=== PATIENT | male | born 1980 | race Caucasian/White ===

== ENCOUNTER → 2017-04-16 | Outpatient (CLI) | payer BC ==
--- NOTE | 2017-04-16 17:08 | RADIOLOGY REPORT (SQ) ---
EXAM DESCRIPTION: MRI RT LOWER JOINT WITHOUT COMPLETED DATE/TIME: 04/16/2017 4:22 pm REASON FOR STUDY: PAIN IN R KNEE M25.561 PAIN IN RIGHT KNEE COMPARISON: None. TECHNIQUE: Rightknee images acquired and stored on PACS. Multiplanar images include fat sensitive s equences as T1, water sensitive sequences as FST2 or STIR, cartilage sensitive sequences as FSPD, and gradient echo sequences. LIMITATIONS: None. FINDINGS: JOINT AND BURSAE: Small joint effusion. No popliteal cyst. BONE CORTEX AND MARROW: No alteration of signal to suggest marrow replacement. No worrisome bone lesi ons. No occult fracture. ACL: Midsubstance interstitial tear of the ACL. PCL: Intact. MCL: Intact. No periligamentous edema or fluid. LCL: Intact. No periligamentous edema or fluid. MEDIAL MENISCUS: Flap tear posterior horn the medial meniscus. LATERAL MENISCUS: No tears. No abnormal signal. MEDIAL COMPARTMENT: Cartilage preserved. No bone bruises or reactive marrow edema. No osteophytes. LATERAL COMPARTMENT: Irregular cartilage along the lateral femoral condyle and lateral tibial plateau . No significant osteophytes. PATELLA: No chondromalacia. No subchondral cysts. Medial and lateral retinacula intact. EXTENSOR MECHANISM: Intact. Quadriceps and patella tendons normal. SOFT TISSUES: Adjacent muscles and subcutaneous tissues normal. Normal flow void in popliteal artery and vein. OTHER: No other significant finding. IMPRESSION: Small flap tear posterior horn of the medial meniscus. Irregular cartilaginous loss of the lateral femoral condyle and lateral tibial plateau. Small joint effusion. TECHNICAL DOCUMENTATION: JOB ID: [id number] [employer]- All Rights Reserved
== END ==
LOC: RAD 15:35
PROVIDERS: ATTEND Orthopaedic Surgery
DX: S83.241A Other tear of medial meniscus, current injury, right knee, initial encounter (principal); X58.XXXA Exposure to other specified factors, initial encounter; M25.561 Pain in right knee

== ENCOUNTER 2017-05-20 17:21 | Emergency (ER) | payer BC ==
[2017-05-20 17:59] VITALS: BP 139/86
--- NOTE | 2017-05-20 18:21 | ER Document Report ---
ED ENT - General Stated Complaint: EAR,NECK PAIN Time Seen by Provider: 05/20/17 18:06 Information source: Patient Notes: 37-year-old male who presents today with 5 days of right ear pain. He states it radiates to the upper lateral part of his head and down his right neck. He denies any weakness or numbness. He denies any blurry vision, nausea, vomiting , fevers, or sore throat. Patient states he has had a little bit of drainage from his right ear he believes. Patient denies a history of diabetes. TRAVEL OUTSIDE OF THE [place] IN LAST 30 DAYS: No - HPI Patient complains to provider of: Ear problem Onset: Other - See above Onset/Duration: Gradual Quality of pain: Achy Severity: Mild Pain Level: 1 Location of pain: Ears Associated symptoms: Other - See above Similar symptoms previously: No Recently seen / treated by doctor: No - Related Data Allergies/Adverse Reactions: Penicillins Allergy (Verified 10/05/15 09:15) Past Medical History - General Information source: Patient - Social History Smoking Status: Unknown if Ever Smoked Cigarette use (# per day): No Chew tobacco use (# tins/day): No Smoking Education Provided: No Family History: Reviewed & Not Pertinent GI Medical History: Reports: Hx Gastroesophageal Reflux Disease Psychiatric Medical History: Reports: Hx Bipolar Disorder, Hx Depression - Immunizations Hx Diphtheria, Pertussis, Tetanus Vaccination: No Physical Exam - Vital signs Vitals: Temp Pulse Resp BP Pulse Ox 98.2 F 82 20 139/86 H 98 05/20/17 17:57 05/20/17 17:57 05/20/17 17:57 05/20/17 17:57 05/20/17 17:57 Notes: Reviewed vital signs and nursing note as charted by RN. CONSTITUTIONAL: Alert and oriented and responds appropriately to questions. Well -appearing; well-nourished HEAD: Normocephalic; atraumatic EYES: PERRL; Conjunctivae clear, sclerae non-icteric ENT: On examination of bilateral ears the patient has no mastoid tenderness or swelling. There is no ear pinna extrusion. Patient has some mild tenderness when I move the right pinna. Patient has some excoriations to the external auditory canal. Tympanic membrane is clear with landmarks well maintained; normal nose; no rhinorrhea; moist mucous membranes; pharynx without lesions noted NECK: Supple without meningismus; non-tender; no cervical lymphadenopathy, no masses NEURO: CN II through XII are intact. Patient has bilateral 5 out of 5 upper and lower extremity strength with sensation intact to light touch PSYCH: The patient's mood and manner are appropriate. Grooming and personal hygiene are appropriate. Course - Re-evaluation Re-evalutation: 05/20/17 18:25 Given the above history and physical examination, I do not believe that the patient requires any imaging at this time. I will treat the patient with ciprofloxacin eardrops with strict return precautions. - Vital Signs Vital signs: Temp Pulse Resp BP Pulse Ox 98.2 F 82 20 139/86 H 98 05/20/17 17:57 05/20/17 17:57 05/20/17 17:57 05/20/17 17:57 05/20/17 17:57 Discharge - Discharge Clinical Impression: Right otitis externa Qualifiers: Otitis externa type: unspecified type Chronicity: acute Qualified Code(s): H60.501 - Unspecified acute noninfective otitis externa, right ear Condition: Good Disposition: HOME, SELF-CARE Additional Instructions: Come back immediately for any increased pain, drainage, swelling of the ear or behind the ear, fevers or vomiting, weakness or numbness, or any other acute problems. Prescriptions: Ciprofloxacin/Hydrocortisone [Cipro Hc Otic Suspension] 10 ml OT BID #3 drops.susp
== END 2017-05-20 18:36 | disposition home or self-care (01) ==
LOC: ER 17:21
DX: H60.501 Unspecified acute noninfective otitis externa, right ear (principal); Z88.0 Allergy status to penicillin
CPT/HCPCS: 82962; 99283

== ENCOUNTER 2017-07-27 16:07 | Emergency (ER) | payer BC ==
[2017-07-27] MEDS ORDERED: MAGNESIUM CITRATE 296 ML BOTTLE PO ONE (19:42)
[2017-07-27] MEDS ORDERED: KETOROLAC TROMETHAMINE 60 MG/2 ML SDV IM ONE (19:43)
--- NOTE | 2017-07-27 19:45 | ER Document Report ---
ED Medical Screen (RME) - General Chief Complaint: Constipation Stated Complaint: CONSTIPATION Time Seen by Provider: 07/27/17 19:37 Notes: 37-year-old male, chief complaint of pain in his rectal area when he tried to have a bowel movement. He states that he had discomfort in his abdomen earlier but this resolved. He reports current pain in the rectal area. He does have a history of hemorrhoids, he states that he also had a colonoscopy with polyp removal. Last bowel movement 2 days ago, was normal. Denies nausea or vomiting , fever or chills. TRAVEL OUTSIDE OF THE [place] IN LAST 30 DAYS: No - Related Data Allergies/Adverse Reactions: Penicillins Allergy (Verified 10/05/15 09:15) Past Medical History - Social History Chew tobacco use (# tins/day): No Frequency of alcohol use: None Drug Abuse: None Renal/ Medical History: Denies: Hx Peritoneal Dialysis GI Medical History: Reports: Hx Gastroesophageal Reflux Disease Psychiatric Medical History: Reports: Hx Bipolar Disorder - anxiety, depression , Hx Depression - Immunizations Hx Diphtheria, Pertussis, Tetanus Vaccination: No Physical Exam - Vital signs Vitals: Temp Pulse Resp BP Pulse Ox 98.5 F 83 18 123/82 94 07/27/17 16:11 07/27/17 16:11 07/27/17 16:11 07/27/17 16:11 07/27/17 16:11 - Abdominal Inspection: Normal Tenderness: Nontender Course - Re-evaluation Re-evalutation: Patient's only discomfort is in the rectal area at this time. Soft abdomen. Requesting something for pain, requesting something to help move his bowels. - Vital Signs Vital signs: Temp Pulse Resp BP Pulse Ox 98.5 F 83 18 123/82 94 07/27/17 16:11 07/27/17 16:11 07/27/17 16:11 07/27/17 16:11 07/27/17 16:11
--- NOTE | 2017-07-27 20:24 | RADIOLOGY REPORT (SQ) ---
EXAM DESCRIPTION: ACUTE ABDOMEN SERIES COMPLETED DATE/TIME: 07/27/2017 8:13 pm REASON FOR STUDY: can't move bowels COMPARISON: None. NUMBER OF VIEWS: Three views. TECHNIQUE: Frontal chest, supine abdomen and upright/decubitus abdomen radiographic images acquired. LIMITATIONS: None. FINDINGS: CHEST: Lungs clear of infiltrates. FREE AIR: None. No abnormal gas collections. BOWEL GAS PATTERN: Nonobstructive pattern. Moderate stool. No dilated loops or air fluid levels. CALCIFICATIONS: No suspicious calcifications. HARDWARE: None in the abdomen. SOFT TISSUES: No gross mass or suggestion of organomegaly. BONES: No acute fracture. No worrisome bone lesions. OTHER: No other significant finding. IMPRESSION: NO RADIOGRAPHIC EVIDENCE FOR ACUTE ABDOMINAL DISEASE. TECHNICAL DOCUMENTATION: JOB ID: [id number] [employer]- All Rights Reserved
--- NOTE | 2017-07-27 22:37 | ER Document Report ---
ED GI/ - General Chief Complaint: Constipation Stated Complaint: CONSTIPATION Time Seen by Provider: 07/27/17 19:37 Notes: 37-year-old male, chief complaint of pain in his rectal area when he tried to have a bowel movement. He states that he had discomfort in his abdomen earlier but this resolved. He reports current pain in the rectal area. He does have a history of hemorrhoids, he states that he also had a colonoscopy with polyp removal. Last bowel movement 2 days ago, was normal. Denies nausea or vomiting , fever or chills. TRAVEL OUTSIDE OF THE [place] IN LAST 30 DAYS: No - Related Data Allergies/Adverse Reactions: Penicillins Allergy (Verified 10/05/15 09:15) Past Medical History - General Information source: Patient - Social History Smoking Status: Never Smoker Chew tobacco use (# tins/day): No Frequency of alcohol use: None Drug Abuse: None Lives with: Alone Family History: Reviewed & Not Pertinent Patient has suicidal ideation: No Patient has homicidal ideation: No Renal/ Medical History: Denies: Hx Peritoneal Dialysis GI Medical History: Reports: Hx Gastroesophageal Reflux Disease Psychiatric Medical History: Reports: Hx Bipolar Disorder - anxiety, depression , Hx Depression - Immunizations Hx Diphtheria, Pertussis, Tetanus Vaccination: No Review of Systems - Review of Systems Constitutional: No symptoms reported EENT: No symptoms reported Cardiovascular: No symptoms reported Respiratory: No symptoms reported Gastrointestinal: See HPI Genitourinary: No symptoms reported Male Genitourinary: No symptoms reported Musculoskeletal: No symptoms reported Skin: No symptoms reported Hematologic/Lymphatic: No symptoms reported Neurological/Psychological: No symptoms reported Physical Exam - Vital signs Vitals: Temp Pulse Resp BP Pulse Ox 98.5 F 83 18 123/82 94 07/27/17 16:11 07/27/17 16:11 07/27/17 16:11 07/27/17 16:11 07/27/17 16:11 Interpretation: Normal - General General appearance: Appears well, Alert In distress: None - HEENT Head: Normocephalic, Atraumatic Eyes: Normal Pupils: PERRL - Respiratory Respiratory status: No respiratory distress Chest status: Nontender Breath sounds: Normal Chest palpation: Normal - Cardiovascular Rhythm: Regular. No: Tachycardia Heart sounds: Normal auscultation, S1 appreciated, S2 appreciated Murmur: No - Abdominal Inspection: Normal Distension: No distension Bowel sounds: Normal Tenderness: Nontender. No: Tender, Guarding - Back Back: Normal, Nontender. No: Tender - Extremities General upper extremity: Normal inspection, Nontender, Normal color, Normal ROM , Normal temperature General lower extremity: Normal inspection, Nontender, Normal color, Normal ROM , Normal temperature, Normal weight bearing. No: Ellen's sign - Neurological Neuro grossly intact: Yes Cognition: Normal Orientation: AAOx4 [place] Coma Scale Eye Opening: Spontaneous [place] Coma Scale Verbal: Oriented [place] Coma Scale Motor: Obeys Commands Irma Coma Scale Total: 15 Speech: Normal Motor strength normal: LUE, RUE, LLE, RLE Sensory: Normal - Psychological Associated symptoms: Normal affect, Normal mood - Skin Skin Temperature: Warm Skin Moisture: Dry Skin Color: Normal Course - Re-evaluation Re-evalutation: Unfortunately I am unable to perform patient's rectal examination because of lack of privacy and available rooms with high capacity in the emergency department. He is well-appearing, emanates without difficulty, has a soft abdomen, unremarkable vital signs. Acute abdominal series showing retained stool but no free air, obstruction, or other abnormality. Patient denying any current abdominal pain, just rectal discomfort. No fever or chills, he has a history of hemorrhoids. He drank magnesium citrate without success. I discussed with patient again. He states he is ready to leave. I have low suspicion of rectal abscess, acute abdomen, or other emergent process based on patient's appearance, vital signs, presentation. Patient was discharged with Colace, topical ointment for hemorrhoids, follow-up instructions, and return precautions. Patient states understanding and agreement. - Vital Signs Vital signs: Temp Pulse Resp BP Pulse Ox 97.7 F 70 18 124/75 99 07/27/17 22:38 07/27/17 22:38 07/27/17 22:38 07/27/17 22:38 07/27/17 22:38 Discharge - Discharge Clinical Impression: Rectal pain Abdominal pain Qualifiers: Abdominal location: generalized Qualified Code(s): R10.84 - Generalized abdominal pain Condition: Stable Disposition: HOME, SELF-CARE Additional Instructions: Abdominal x-rays show retained stool but states constipation) but no obstructive or concerning abnormalities. Drink plenty of fluids, recommendation is to take the prescribed Colace stool softener for the next 2-3 days, apply cream to hemorrhoid area, avoid any straining on the toilet, follow- up with primary care for additional management. Return for any concerning symptoms including severe pain in the abdomen, vomiting, fever, black or bloody bowel movements, or any other concerning or worsening symptoms. Prescriptions: Docusate Sodium [Colace 100 mg Capsule] 100 mg PO ASDIR PRN #30 capsule PRN Reason: Hydrocortisone/Pramoxine [Analpram Hc 1% Cream] 30 gm RC TID PRN #1 cream.appl PRN Reason: Forms: Return to Work
[2017-07-27 22:39] VITALS: BP 124/75
== END 2017-07-27 22:41 | disposition home or self-care (01) ==
LOC: ER 16:07
DX: K59.00 Constipation, unspecified (principal); R10.84 Generalized abdominal pain; K62.89 Other specified diseases of anus and rectum; Z88.0 Allergy status to penicillin; Z87.19 Personal history of other diseases of the digestive system
CPT/HCPCS: 99283; 96372; 74022; J3490; J1885

== ENCOUNTER 2017-07-28 12:15 | Emergency (ER) | payer BC ==
--- NOTE | 2017-07-28 14:23 | ER Document Report ---
ED Medical Screen (RME) - General Chief Complaint: Abdominal Pain Stated Complaint: BLOOD IN STOOL Time Seen by Provider: 07/28/17 14:20 Mode of Arrival: Ambulatory Information source: Patient Notes: 37 yo non smoker male returns to er because of dark red blood and anal pain when he had a small bm-ripped and tore anus today. This morning at 03:30 woke up choking and vomiting into trash can. Still having abd. pain and pain in rectum. Seen in [facility] ER yesterday with trouble rectal pain, not able to have bm , abd. pain. Xray should constipation way up high. Drank Mg Citrate that he drank at 22:30, no enema. Hx internal and external hemorrhoids. 2 polyps removed. Intermittent anal pain/tearing of anal tissue this past year. No anal sex. Abd. pain started while trying to have BM at 3 pm 1-23. TRAVEL OUTSIDE OF THE [place] IN LAST 30 DAYS: No - Related Data Allergies/Adverse Reactions: Penicillins Allergy (Verified 07/28/17 12:16) Past Medical History Renal/ Medical History: Denies: Hx Peritoneal Dialysis GI Medical History: Reports: Hx Gastroesophageal Reflux Disease Psychiatric Medical History: Reports: Hx Bipolar Disorder - anxiety, depression , Hx Depression - Immunizations Hx Diphtheria, Pertussis, Tetanus Vaccination: No Physical Exam - Vital signs Vitals: Temp Pulse Resp BP Pulse Ox 97.9 F 76 14 104/62 98 07/28/17 12:46 07/28/17 12:46 07/28/17 12:46 07/28/17 12:46 07/28/17 12:46 Course - Vital Signs Vital signs: Temp Pulse Resp BP Pulse Ox 97.9 F 76 14 104/62 98 07/28/17 12:46 07/28/17 12:46 07/28/17 12:46 07/28/17 12:46 07/28/17 12:46
[2017-07-28 15:02] LABS: APPEARANCE,URINE CLEAR; BILIRUBIN,URINE NEGATIVE (NEGATIVE); COLOR,URINE YELLOW; GLUCOSE, URINE NEGATIVE (NEGATIVE); KETONES,URINE NEGATIVE (NEGATIVE); LEUKOCYTE ESTERASE,URINE NEGATIVE (NEGATIVE); NITRITE,URINE NEGATIVE (NEGATIVE); PROTEIN,URINE NEGATIVE (NEGATIVE); URINE SPECIFIC GRAVITY 1.008; UROBILINOGEN,URINE NEGATIVE mg/dL (<2.0)
[2017-07-28] MEDS ORDERED: MORPHINE SULFATE 10 MG/ML INJ IV ONE (15:35)
[2017-07-28 15:36] LABS: ABSOLUTE BASOPHILS # (AUTO) 0.1 10^3/uL (0.0-0.2); ABSOLUTE EOSINOPHILS # (AUTO) 0.3 10^3/uL (0.0-0.6); ABSOLUTE LYMPHOCYTES (AUTO) 1.7 10^3/uL (0.5-4.7); ABSOLUTE MONOCYTES (AUTO) 0.7 10^3/uL (0.1-1.4); ABSOLUTE NEUT (AUTO) 6.7 10^3/uL (1.7-8.2); BASOPHILS % (AUTO) 0.6 % (0-2); EOSINOPHILS % (AUTO) 3.1 % (0-6); HEMATOCRIT 44.4 % (37.9-51.0); HEMOGLOBIN 15.4 g/dL (13.5-17.0); LYMPHOCYTES % (AUTO) 17.8 % (13-45); MEAN CORPUSCULAR HEMOGLOBIN 31.1 pg (27.0-33.4); MEAN CORPUSCULAR HGB CONC 34.5 g/dL (32.0-36.0); MEAN CORPUSCULAR VOLUME 90 fl (80-97); MONOCYTES % (AUTO) 7.5 % (3-13); PLATELET COUNT 213 10^3/uL (150-450); RED BLOOD COUNT 4.93 10^6/uL (4.35-5.55); RED CELL DISTRIBUTION WIDTH 13.6 % (11.5-14.0); TOTAL CELLS COUNTED % (AUTO) 100 %; WHITE BLOOD COUNT 9.4 10^3/uL (4.0-10.5)
--- NOTE | 2017-07-28 15:44 | RADIOLOGY REPORT (SQ) ---
EXAM DESCRIPTION: CT ABD/PELVIS WITH IV ONLY COMPLETED DATE/TIME: 07/28/2017 3:31 pm REASON FOR STUDY: RLQ and LLQ abd tendernes, blood with stool this a COMPARISON: ABDOMINAL FILMS 07/27/2017 TECHNIQUE: CT scan of the abdomen and pelvis performed using helical scanning technique with dynamic intravenous contrast injection. No oral contrast. Images reviewed with lung, soft tissue, and bone windows. Reconstructed coronal and sagittal MPR images reviewed. Delayed images for evaluation of the urinary system also acquired. All images stored on PACS. All CT scanners at this facility use dose modulation, iterative reconstruction, and/or weight based d osing when appropriate to reduce radiation dose to as low as reasonably achievable (ALARA). [facility]: Dose Right [facility]: CareDose [facility]: Dose Right [facility]: Teradose 4D [facility]: Supernova CONTRAST TYPE AND DOSE: contrast/concentration: Isovue 370.00 mg/ml; Total Contrast Delivered: 100.0 ml; Total Saline Delivered: 45.0 ml RENAL FUNCTION: None required. The patient is less than 50 years old. RADIATION DOSE: CT Rad equipment meets quality standard of care and radiation dose reduction techniq ues were employed. CTDIvol: 10.6 - 14.9 mGy. DLP: 1434 mGy-cm.. LIMITATIONS: None. FINDINGS: LOWER CHEST: Bibasilar atelectasis is present in the posterior costophrenic sulci. LIVER: Normal size. No masses. No dilated ducts. SPLEEN: Normal size. No focal lesions. PANCREAS: No masses. No significant calcifications. No adjacent inflammation or peripancreatic fluid collections. Pancreatic duct not dilated. GALLBLADDER: No identified stones by CT criteria. No inflammatory changes to suggest cholecystitis. ADRENAL GLANDS: No significant masses or asymmetry. RIGHT KIDNEY AND URETER: No solid masses. No significant calcifications. No hydronephrosis or hyd roureter. LEFT KIDNEY AND URETER: No solid masses. No significant calcifications. No hydronephrosis or hydr oureter. AORTA AND VESSELS: No aneurysm. No dissection. Renal arteries, SMA, celiac without stenosis. RETROPERITONEUM: No retroperitoneal adenopathy, hemorrhage or masses. BOWEL AND PERITONEAL CAVITY: No masses or inflammatory changes. No free fluid or peritoneal masses. APPENDIX: Normal. PELVIS: No mass. No free fluid. Normal bladder. ABDOMINAL WALL: No masses. No hernias. BONES: No significant or acute findings. OTHER: No other significant finding. IMPRESSION: NO SIGNIFICANT OR ACUTE FINDING IN THE ABDOMEN OR PELVIS ON CT SCAN WITH IV CONTRAST. TECHNICAL DOCUMENTATION: JOB ID: [id number] Quality ID # [id number]: Final reports with documentation of one or more dose reduction techniques (e.g., Au tomated exposure control, adjustment of the mA and/or kV according to patient size, use of iterative reconstruction technique) 2010 [employer]- All Rights Reserved
[2017-07-28 16:51] LABS: ALANINE AMINOTRANSFERASE 71 U/L (21-72); ALKALINE PHOSPHATASE 66 U/L (38-126); ANION GAP 8 (5-19); ASPARTATE AMINO TRANSFERASE 39 U/L (17-59); BILIRUBIN,DIRECT 0.2 mg/dL (0.0-0.4); BILIRUBIN,TOTAL 0.5 mg/dL (0.2-1.3); BLOOD UREA NITROGEN 13 mg/dL (7-20); CALCIUM 9.6 mg/dL (8.4-10.2); CARBON DIOXIDE 28 mmol/L (22-30); CHLORIDE 100 mmol/L (98-107); GLUCOSE 91 mg/dL (75-110); POTASSIUM 4.5 mmol/L (3.6-5.0); SODIUM 135.8 mmol/L (137-145); TOTAL PROTEIN 6.5 g/dL (6.3-8.2)
[2017-07-28 17:14] VITALS: BP 114/66
--- NOTE | 2017-07-28 17:15 | ER Document Report ---
ED GI/ - General Chief Complaint: Abdominal Pain Stated Complaint: BLOOD IN STOOL Time Seen by Provider: 07/28/17 14:20 Mode of Arrival: Ambulatory Notes: 37 yo non smoker male returns to er because of dark red blood and anal pain when he had a small bm-ripped and tore anus today. This morning at 03:30 woke up choking and vomiting into trash can. Still having abd. pain and pain in rectum. Seen in [facility] ER yesterday with trouble rectal pain, not able to have bm , abd. pain. Xray should constipation way up high. Drank Mg Citrate that he drank at 22:30, no enema. Hx internal and external hemorrhoids. 2 polyps removed. Intermittent anal pain/tearing of anal tissue this past year. No anal sex. Abd. pain started while trying to have BM at 3 pm 1-23. TRAVEL OUTSIDE OF THE [place] IN LAST 30 DAYS: No - Related Data Allergies/Adverse Reactions: Penicillins Allergy (Verified 07/28/17 12:16) Past Medical History - General Information source: Patient - Social History Smoking Status: Never Smoker Chew tobacco use (# tins/day): No Frequency of alcohol use: Rare Drug Abuse: None Family History: Reviewed & Not Pertinent Patient has suicidal ideation: No Patient has homicidal ideation: No Renal/ Medical History: Denies: Hx Peritoneal Dialysis GI Medical History: Reports: Hx Gastroesophageal Reflux Disease Psychiatric Medical History: Reports: Hx Bipolar Disorder - anxiety, depression , Hx Depression - Immunizations Hx Diphtheria, Pertussis, Tetanus Vaccination: No Review of Systems - Review of Systems Constitutional: No symptoms reported EENT: No symptoms reported Cardiovascular: No symptoms reported Respiratory: No symptoms reported Gastrointestinal: See HPI Genitourinary: No symptoms reported Male Genitourinary: No symptoms reported Musculoskeletal: No symptoms reported Skin: No symptoms reported Hematologic/Lymphatic: No symptoms reported Neurological/Psychological: No symptoms reported Physical Exam - Vital signs Vitals: Temp Pulse Resp BP Pulse Ox 97.9 F 76 14 104/62 98 07/28/17 12:46 07/28/17 12:46 07/28/17 12:46 07/28/17 12:46 07/28/17 12:46 Interpretation: Normal - General General appearance: Appears well, Alert In distress: None - HEENT Head: Normocephalic, Atraumatic Eyes: Normal Conjunctiva: Normal Pupils: PERRL Pharynx: Normal Neck: Supple. No: Lymphadenopathy - Respiratory Respiratory status: No respiratory distress Chest status: Nontender Breath sounds: Normal Chest palpation: Normal - Cardiovascular Rhythm: Regular Heart sounds: Normal auscultation Murmur: No - Abdominal Inspection: Normal Distension: No distension Bowel sounds: Normal Tenderness: Tender - Right and left lower quadrant no rebound. No: McBurney's point, Guarding, Rebound Organomegaly: No organomegaly - Back Back: Normal, Nontender. No: CVA tenderness - Extremities General upper extremity: Normal inspection, Nontender, Normal color, Normal ROM , Normal temperature General lower extremity: Normal inspection, Nontender, Normal color, Normal ROM , Normal temperature, Normal weight bearing. No: Ellen's sign - Neurological Neuro grossly intact: Yes Cognition: Normal Orientation: AAOx4 [place] Coma Scale Eye Opening: Spontaneous [place] Coma Scale Verbal: Oriented [place] Coma Scale Motor: Obeys Commands [place] Coma Scale Total: 15 Speech: Normal Motor strength normal: LUE, RUE, LLE, RLE Sensory: Normal - Psychological Associated symptoms: Normal affect, Normal mood - Skin Skin Temperature: Warm Skin Moisture: Dry Skin Color: Normal Skin irregularity: negative: Rash Course - Re-evaluation Re-evalutation: 07/28/17 17:20 Creatinine is elevated, GFR is reduced. Will send to hospitality house supervisor= he has 1 in [place] that he is seen in past. Will also refer to service manager for colonoscopy. - Vital Signs Vital signs: Temp Pulse Resp BP Pulse Ox 97.7 F 72 16 114/66 97 07/28/17 17:12 07/28/17 17:12 07/28/17 17:12 07/28/17 17:12 07/28/17 17:12 - Laboratory Result Diagrams: 07/28/17 15:13 07/28/17 16:00 Laboratory results interpreted by me: 07/28/17 16:00 Sodium 135.8 L Creatinine 1.71 H Est GFR ( Amer) 55 L Est GFR (Non-Af Amer) 46 L Discharge - Discharge Clinical Impression: Rectal bleed, Renal insufficiency Abdominal pain Qualifiers: Abdominal location: lower abdomen, unspecified Qualified Code(s): R10.30 - Lower abdominal pain, unspecified Condition: Good Disposition: HOME, SELF-CARE Instructions: Abdominal Pain ([facility]), Rectal Bleeding, Unclear Cause ([facility]) Additional Instructions: see the service manager dr. Anthony SMITH see family practice doctor to repeat the BUN and Creatinine in a week return to ER for any increased pain, bleeding or fever over the counter miralax daily 1 capful in 8 oz Forms: Return to Work Referrals: JUDI JOSHUA MD [ACTIVE STAFF] - Follow up in 3-5 days
== END 2017-07-28 17:14 | disposition home or self-care (01) ==
LOC: ER 12:15
DX: K62.5 Hemorrhage of anus and rectum (principal); N28.9 Disorder of kidney and ureter, unspecified; R10.30 Lower abdominal pain, unspecified; R10.813 Right lower quadrant abdominal tenderness; R10.814 Left lower quadrant abdominal tenderness; R11.10 Vomiting, unspecified; Z88.0 Allergy status to penicillin; Z87.19 Personal history of other diseases of the digestive system
CPT/HCPCS: 99284; 96374; 36415; 85025; 80053; 81001; 74177; J2270

== ENCOUNTER 2017-08-06 07:45 | Day surgery (SDC) | payer BC ==
[2017-08-06] MEDS ORDERED: PROPOFOL INJ 200 MG/20 ML VIAL IV ONE (08:12)
[2017-08-06] MEDS ORDERED: MIDAZOLAM 2 MG/2 ML INJ ONE (08:12)
[2017-08-06] MEDS ORDERED: ONDANSETRON HCL INJ/PF 4 MG/2 ML SDV ONE (08:12)
[2017-08-06] MEDS ORDERED: FAMOTIDINE INJ/PF 20 MG/2 ML SDV IV ONE (09:48)
[2017-08-06] MEDS ORDERED: PROMETHAZINE HCL INJ 25 MG/1 ML VIAL IV PRN (10:07)
[2017-08-06] MEDS ORDERED: DIPHENHYDRAMINE HCL 50 MG/ML VIAL IV PRN (10:07)
[2017-08-06] MEDS ORDERED: FENTANYL CITRATE INJ/PF 100 MCG/2 ML AMPUL IV PRN ×3 (10:07)
--- NOTE | 2017-08-06 10:56 | Operative Report ---
Operative Report DATE OF SURGERY: 08/06/17 Operative Report: The risks, benefits and alternatives of the procedure including risks of bleeding, perforation requiring surgery are explained to the patient in detail and informed consent was obtained. The patient is brought back to the endoscopy suite and placed in the left, lateral decubital position. Timeout was called. Propofol medications are provided. A rectal examination is done which did not reveal any masses, tears or fissures. An Olympus videoscope was inserted into the patient's rectum. The scope was then carefully advanced all the way to the cecum. Prep is reasonably good. Scope was then sequentially pulled back via the rest segments of the colon including the ascending colon, hepatic flexure, transverse colon, splenic flexure, descending colon and finding to the rectosigmoid portions of the colon. Retroflexion maneuver is performed. The risks benefits and alternatives of the procedure explained to the patient in detail and informed consent is obtained.A GIF Olympus video scope was inserted into the patient's mouth and hypopharynx, the esophagus is identified intubated and insufflated, the scope was then advanced through the esophagus stomach and duodenum, retroflexion maneuver is done, the esophagus stomach and first and second portions of the duodenum examined PREOPERATIVE DIAGNOSIS: Personal history of polyps, change in bowel habits. Gastroesophageal reflux disease assess for Stephenson's esophagus. POSTOPERATIVE DIAGNOSIS: Gastritis/gastric erosions status post biopsy. Esophagitis status post biopsy rule out Stephenson's esophagus. Colon polyp in the rectosigmoid region status post snare polypectomy and retrieved. Internal hemorrhoids OPERATION: Colonoscopy with snare polypectomy. EGD with biopsy SURGEON: JUDI JOSHUA ANESTHESIA: LMAC TISSUE REMOVED OR ALTERED: As noted above. COMPLICATIONS: None. ESTIMATED BLOOD LOSS: None. INTRAOPERATIVE FINDINGS: As noted above. PROCEDURE: Patient tolerated procedure well. No immediate postprocedure complications are noted. Patient discharged in good condition. Discharge date August 06, 2017. Discharge diet: Regular. Discharge activity: Regular. 2-3 week follow-up to discuss findings. Patient is instructed to call the office or proceed to the emergency room should there be any further problems or questions. We will wait on pathology. Surveillance colonoscopy in 3-5 years.
[2017-08-06 13:12] VITALS: BP 101/53
== END 2017-08-06 12:25 | disposition home or self-care (01) ==
LOC: OROUT 07:45
PROVIDERS: ATTEND Internal Medicine Gastroenterology
PROC: 0DBP8ZX Excision of Rectum, Via Natural or Artificial Opening Endoscopic, Diagnostic (ICD-10-PCS; 2017-08-06)
PROC: 0DBN8ZX Excision of Sigmoid Colon, Via Natural or Artificial Opening Endoscopic, Diagnostic (ICD-10-PCS; 2017-08-06)
PROC: 0DB58ZX Excision of Esophagus, Via Natural or Artificial Opening Endoscopic, Diagnostic (ICD-10-PCS; principal; 2017-08-06 10:00)
PROC: 0DB68ZX Excision of Stomach, Via Natural or Artificial Opening Endoscopic, Diagnostic (ICD-10-PCS; 2017-08-06 10:00)
DX: K21.0 Gastro-esophageal reflux disease with esophagitis (principal); K29.70 Gastritis, unspecified, without bleeding; K64.8 Other hemorrhoids; D12.7 Benign neoplasm of rectosigmoid junction; K92.1 Melena; Z88.0 Allergy status to penicillin; Z79.899 Other long term (current) drug therapy
CPT/HCPCS: 43239; 45385; 88342 ×2; 88305 ×2; J2250; J2405; J2704; S0028; 813

== ENCOUNTER 2017-08-25 17:40 | Emergency (ER) | payer BC ==
--- NOTE | 2017-08-25 19:57 | ER Document Report ---
HPI - HPI Pain Level: 3 Context: 37 yo male with chronic knee pain presents to ED c/o increasing pain and swelling to right knee. pt has known ACL and MCL injury which he has not repaired because he can not get the time off from work for surgery. pt works at [employer] with prolonged standing. no recent trauma. Associated Symptoms: None Exacerbated by: Movement, Walking. denies: Standing Similar symptoms previously: Yes Recently seen / treated by doctor: No - ROS Systems Reviewed and Negative: Yes All other systems reviewed and negative - CONSTITUTIONAL Constitutional: DENIES: Fever, Chills - EENT EENT: DENIES: Sore Throat, Ear Pain, Eye problems - REPRODUCTIVE Reproductive: DENIES: : - MUSCULOSKELETAL Musculoskeletal: REPORTS: Extremity pain - right knee pain Past Medical History - General Information source: Patient - Social History Smoking Status: Never Smoker Chew tobacco use (# tins/day): No Frequency of alcohol use: Occasional Drug Abuse: [place] Lives with: Family Family History: Reviewed & Not Pertinent Patient has suicidal ideation: No Patient has homicidal ideation: No - Past Medical History Cardiac Medical History: Denies: Hx Coronary Artery Disease, Hx Heart Attack, Hx Hypertension Pulmonary Medical History: Denies: Hx Asthma, Hx Bronchitis, Hx COPD, Hx Pneumonia Neurological Medical History: Denies: Hx Cerebrovascular Accident, Hx Seizures Renal/ Medical History: Denies: Hx Peritoneal Dialysis GI Medical History: Reports: Hx Gastroesophageal Reflux Disease Musculoskeltal Medical History: Denies Hx Arthritis Psychiatric Medical History: Reports: Hx Bipolar Disorder - anxiety, depression , Hx Depression - Immunizations Hx Diphtheria, Pertussis, Tetanus Vaccination: Yes Vertical Provider Document - CONSTITUTIONAL Agree With Documented VS: Yes Exam Limitations: No Limitations - INFECTION CONTROL TRAVEL OUTSIDE OF THE [place] IN LAST 30 DAYS: No - HEENT HEENT: Atraumatic, PERRLA - NECK Neck: Normal Inspection, Supple - RESPIRATORY Respiratory: Breath Sounds Normal, No Respiratory Distress O2 Sat by Pulse Oximetry: 97 - MUSCULOSKELETAL/EXTREMETIES Musculoskeletal/Extremeties: Tender - right knee with tenderness to lateral and medial compartments. no effusion. negative drawer. no popliteal pain. + anterior mid patellar pain. distal SMC intact Course - Re-evaluation Re-evalutation: 08/25/17 20:04 [place] Controlled Substance Database reviewed. no narcotic meds prescribed for this patient. no circulatory compromise. this is chronic problem. no effusion to drawn. I recommend pt see orthopedist for further evaluation and treatment. pt is stable for discharge - Vital Signs Vital signs: Temp Pulse Resp BP Pulse Ox 98.1 F 80 16 119/74 97 08/25/17 18:07 08/25/17 18:07 08/25/17 18:07 08/25/17 18:07 08/25/17 18:07 Discharge - Discharge Clinical Impression: Right knee pain Qualifiers: Chronicity: chronic Qualified Code(s): M25.561 - Pain in right knee; G89.29 - Other chronic pain; G89.29 - Other chronic pain Condition: Stable Disposition: HOME, SELF-CARE Instructions: Ice & Elevation ([facility]), Oral Narcotic Medication ([facility]) Additional Instructions: Recommend further evaluation and treatment by orthopedist [facility] [address] [place] [address], [id number] wear splint for comfort and support norco for pain Prescriptions: Hydrocodone/Acetaminophen [[place] 5-325 Tablet] 1 tab PO Q4H PRN #15 tab PRN Reason:
[2017-08-25 20:23] VITALS: BP 115/71
== END 2017-08-25 20:21 | disposition home or self-care (01) ==
LOC: ER 17:40
DX: G89.29 Other chronic pain (principal); M25.561 Pain in right knee; S89.91XA Unspecified injury of right lower leg, initial encounter; X58.XXXA Exposure to other specified factors, initial encounter
CPT/HCPCS: 99283

== ENCOUNTER 2018-02-19 14:58 | Emergency (ER) | payer BC ==
[2018-02-19 15:04] VITALS: BP 135/92
[2018-02-19] MEDS ORDERED: DIAZEPAM 5 MG TABLET PO ONE (15:22)
--- NOTE | 2018-02-19 15:28 | ER Document Report ---
ED Medical Screen (RME) - General Chief Complaint: Psych Problem Stated Complaint: PSYCH PROBLEMS Time Seen by Provider: 02/19/18 15:22 Mode of Arrival: Ambulatory Information source: Patient Notes: This is a 37-year-old man with psychiatric history that has been off of his medicines for a few days and presents wanting to get a temporary prescription. Patient states that he had a lapse of insulin insurance but that he has been able to get the coverage reinstated. He states he was not able to get into his psychiatrist office (and that it had closed). He denies any suicidal or homicidal ideations. His medicines include Zoloft, amitriptyline, clonidine and diazepam. TRAVEL OUTSIDE OF THE [place] IN LAST 30 DAYS: No - HPI Onset: Just prior to arrival Onset/Duration: Gradual Quality of pain: No pain Severity: None Pain Level: Denies Associated Symptoms: denies: Chest pain, Fever, Shortness of breath Exacerbated by: Denies Relieved by: Denies Similar symptoms previously: Yes Recently seen / treated by doctor: No - Related Data Smoking: Non-smoker Frequency of alcohol use: None Drug Abuse: None Allergies/Adverse Reactions: Penicillins Allergy (Verified 02/19/18 14:59) Past Medical History - General Information source: Patient - Social History Cigarette use (# per day): No Chew tobacco use (# tins/day): No Frequency of alcohol use: Occasional Drug Abuse: None Lives with: Alone Family history: None - Past Medical History Cardiac Medical History: Denies: Hx Coronary Artery Disease, Hx Heart Attack, Hx Hypertension Pulmonary Medical History: Denies: Hx Asthma, Hx Bronchitis, Hx COPD, Hx Pneumonia Neurological Medical History: Denies: Hx Cerebrovascular Accident, Hx Seizures Renal/ Medical History: Denies: Hx Peritoneal Dialysis GI Medical History: Reports: Hx Gastroesophageal Reflux Disease Musculoskeltal Medical History: Denies Hx Arthritis Psychiatric Medical History: Reports: Hx Bipolar Disorder - anxiety, depression , Hx Depression - Immunizations Hx Diphtheria, Pertussis, Tetanus Vaccination: Yes History of Influenza Vaccine for 04/2017 - 09/2017 Season: No Review of Systems - Review of Systems Constitutional: denies: Chills, Fever EENT: No symptoms reported Cardiovascular: No symptoms reported Respiratory: No symptoms reported Gastrointestinal: No symptoms reported Genitourinary: No symptoms reported Male Genitourinary: No symptoms reported Musculoskeletal: No symptoms reported Skin: No symptoms reported Hematologic/Lymphatic: No symptoms reported Neurological/Psychological: See HPI Physical Exam - Vital signs Vitals: Temp Pulse Resp BP Pulse Ox 98.5 F 93 12 135/92 H 96 02/19/18 15:02 02/19/18 15:02 02/19/18 15:02 02/19/18 15:02 02/19/18 15:02 Notes: Physical exam: GENERAL: 37-year-old man, alert 3, no acute distress. HEAD: Atraumatic, normocephalic. EYES: Pupils equal round and reactive to light, extraocular movements intact, sclera anicteric, conjunctiva are normal. ENT: TMs normal, nares patent, oropharynx clear without exudates. Moist mucous membranes. NECK: Normal range of motion, supple without obvious mass or JVD. LUNGS: Breath sounds clear to auscultation bilaterally and equal. No wheezes rales or rhonchi. HEART: Regular rate and rhythm without murmurs, rubs or gallops. ABDOMEN: Soft, normoactive bowel sounds. No tenderness to palpation. No guarding, no rebound. No masses appreciated. EXTREMITIES: Normal range of motion, no pitting or edema. No clubbing or cyanosis. NEUROLOGICAL: Cranial nerves II through XII grossly intact. Normal speech, moving all extremities. PSYCH: Patient exhibits no hallucinations or delusions. He denies any suicidal ideation. SKIN: Warm, Dry, normal turgor, no rashes or lesions noted. Course - Re-evaluation Re-evalutation: 02/19/18 15:30 I have had a long discussion with the patient about the importance of following up in the psychiatry clinic. I am a little concerned about the fact that he has been on diazepam chronically and to abruptly stop could raise risks of seizures. Therefore, I have agreed to give him a few tablets to cover him till Wednesday morning. I had gotten a referral list of mental health clinics from the psychology team and they have informed me that [facility] will see walk-in at 8 AM Wednesday morning. The patient has [facility] and they will accept that insurance. I have discussed this plan with the patient and he is agreeable. - Vital Signs Vital signs: Temp Pulse Resp BP Pulse Ox 98.5 F 93 12 135/92 H 96 02/19/18 15:02 02/19/18 15:02 02/19/18 15:02 02/19/18 15:02 02/19/18 15:02 Doctor's Discharge - Discharge Clinical Impression: Medication refill Condition: Stable Disposition: HOME, SELF-CARE Additional Instructions: As we discussed, [facility] has walk-in clinics 8 AM Wednesday. I would like you to go there. I am giving you a referral list with other mental health outpatient clinics. Return to the ER for any suicidal ideations. Prescriptions: Amitriptyline HCl 100 mg PO QHS #14 tablet Clonidine HCl 0.3 mg PO QHS #14 tablet Diazepam [Valium 5 mg Tablet] 5 mg PO QIDP PRN #10 tablet PRN Reason: Sertraline HCl [Zoloft 50 mg Tablet] 50 mg PO DAILY #30 tablet
== END 2018-02-19 15:30 | disposition home or self-care (01) ==
LOC: ER 14:58
DX: Z76.0 Encounter for issue of repeat prescription (principal); F31.9 Bipolar disorder, unspecified; T43.226A Underdosing of selective serotonin reuptake inhibitors, initial encounter; T43.016A Underdosing of tricyclic antidepressants, initial encounter; F41.9 Anxiety disorder, unspecified; T42.4X6A Underdosing of benzodiazepines, initial encounter; T46.5X6A Underdosing of other antihypertensive drugs, initial encounter; Z91.120 Patient's intentional underdosing of medication regimen due to financial hardship; Z91.14 Patient's other noncompliance with medication regimen; Z88.0 Allergy status to penicillin
CPT/HCPCS: 99283

== ENCOUNTER 2018-08-21 06:39 | Emergency (ER) | payer SELFPAY ==
[2018-08-21 06:56] VITALS: BP 150/99
--- NOTE | 2018-08-21 07:47 | ER Document Report ---
HPI - HPI Time Seen by Provider: 08/21/18 07:13 Pain Level: 0 Notes: Patient is a 38-year-old male presenting to the emergency department with request for medication refill. Patient reports he ran out of his medications approximately 3-4 days ago. Patient currently denies any other symptoms. Denies any suicidal or homicidal ideations. - REPRODUCTIVE Reproductive: DENIES: : Past Medical History - General Information source: Patient - Social History Smoking Status: Never Smoker Frequency of alcohol use: None Drug Abuse: None Family History: Reviewed & Not Pertinent - Past Medical History Cardiac Medical History: Denies: Hx Coronary Artery Disease, Hx Heart Attack, Hx Hypertension Pulmonary Medical History: Denies: Hx Asthma, Hx Bronchitis, Hx COPD, Hx Pneumonia Neurological Medical History: Denies: Hx Cerebrovascular Accident, Hx Seizures Renal/ Medical History: Denies: Hx Peritoneal Dialysis GI Medical History: Reports: Hx Gastroesophageal Reflux Disease Musculoskeletal Medical History: Denies Hx Arthritis Psychiatric Medical History: Reports: Hx Bipolar Disorder - anxiety, depression, Hx Depression - Immunizations Hx Diphtheria, Pertussis, Tetanus Vaccination: Yes Vertical Provider Document - CONSTITUTIONAL Notes: PHYSICAL EXAMINATION: GENERAL: Well-appearing, well-nourished and in no acute distress. HEAD: Atraumatic, normocephalic. EYES: Pupils equal round extraocular movements intact, conjunctiva are normal. ENT: Nares patent NECK: Normal range of motion LUNGS: No respiratory distress Musculoskeletal: Normal range of motion NEUROLOGICAL: Normal speech, normal gait. PSYCH: Normal mood, normal affect. SKIN: Warm, Dry, normal turgor, no rashes or lesions noted. - INFECTION CONTROL TRAVEL OUTSIDE OF THE [place] IN LAST 30 DAYS: No Course - Re-evaluation Re-evalutation: Patient's medications refilled as per request. Encourage follow-up with PCP. - Vital Signs Vital signs: Temp Pulse Resp BP Pulse Ox 98.6 F 110 H 22 H 150/99 H 97 08/21/18 06:52 08/21/18 06:52 08/21/18 06:52 08/21/18 06:52 08/21/18 06:52 Discharge - Discharge Clinical Impression: Medication refill Condition: Stable Disposition: HOME, SELF-CARE Additional Instructions: Medications were refilled today per your request. Please follow-up with your PCP as discussed. Prescriptions: Clonidine HCl 0.3 mg PO QHS #30 tablet Sertraline HCl [Zoloft] 100 mg PO QHS 1 Days #30 tablet Amitriptyline HCl [Elavil 100 mg Tablet] 100 mg PO DAILY #30 tablet
== END 2018-08-21 08:01 | disposition home or self-care (01) ==
LOC: ER 06:39
DX: Z76.0 Encounter for issue of repeat prescription (principal)
CPT/HCPCS: 99281

== ENCOUNTER 2018-09-04 20:00 | Emergency (ER) | payer SELFPAY ==
--- NOTE | 2018-09-04 20:24 | ER Document Report ---
ED Medical Screen (RME) - General Chief Complaint: Laceration Stated Complaint: LEFT ARM LACERATION Time Seen by Provider: 09/04/18 20:23 Mode of Arrival: Ambulatory Information source: Patient TRAVEL OUTSIDE OF THE [place] IN LAST 30 DAYS: No - HPI Patient complains to provider of: cut L elbow Onset: Just prior to arrival - pt. cut L elbow on piece of glasss just [employer]IENT [employer]. Tet- utd - Related Data Allergies/Adverse Reactions: Penicillins Allergy (Verified 02/19/18 14:59) Past Medical History - Social History Chew tobacco use (# tins/day): No Frequency of alcohol use: Occasional Drug Abuse: None Family history: None - Past Medical History Cardiac Medical History: Denies: Hx Coronary Artery Disease, Hx Heart Attack, Hx Hypertension Pulmonary Medical History: Denies: Hx Asthma, Hx Bronchitis, Hx COPD, Hx Pneumonia Neurological Medical History: Denies: Hx Cerebrovascular Accident, Hx Seizures Renal/ Medical History: Denies: Hx Peritoneal Dialysis GI Medical History: Reports: Hx Gastroesophageal Reflux Disease Musculoskeltal Medical History: Denies Hx Arthritis Psychiatric Medical History: Reports: Hx Bipolar Disorder - anxiety, depression, Hx Depression - Immunizations Hx Diphtheria, Pertussis, Tetanus Vaccination: Yes History of Influenza Vaccine for 04/2017 - 09/2017 Season: No Physical Exam - Vital signs Vitals: Temp Pulse Resp BP Pulse Ox 98.7 F 95 20 134/98 H 97 09/04/18 20:05 09/04/18 20:05 09/04/18 20:05 09/04/18 20:05 09/04/18 20:05 Course - Vital Signs Vital signs: Temp Pulse Resp BP Pulse Ox 98.7 F 95 20 134/98 H 97 09/04/18 20:05 09/04/18 20:05 09/04/18 20:05 09/04/18 20:05 09/04/18 20:05
[2018-09-04] MEDS ORDERED: LIDOCAINE 1%/EPINEPHRINE INJ 20 ML VIAL INJ ONE (20:53)
--- NOTE | 2018-09-04 21:25 | ER Document Report ---
ED General - General Chief Complaint: Laceration Stated Complaint: LEFT ARM LACERATION Time Seen by Provider: 09/04/18 20:23 Mode of Arrival: Ambulatory Notes: Patient is a 38-year-old male without chronic medical problems, tetanus up-to-date who presents with laceration to the left elbow extending onto the left forearm after he cut it on a piece of metal. Patient describes a dull, throbbing, aching pain to the area. Nothing seems to improve or worsen the pain. Laceration occurred just prior to arrival. Has not seen his primary care doctor regarding today's concerns. Denies history of similar injuries in the past to the affected area. Denies any additional injuries today. Denies any weakness or numbness of the hand or arm. He is right-hand dominant. TRAVEL OUTSIDE OF THE [place] IN LAST 30 DAYS: No - Related Data Allergies/Adverse Reactions: Penicillins Allergy (Verified 02/19/18 14:59) Past Medical History - General Information source: Patient - Social History Smoking Status: Current Some Day Smoker Chew tobacco use (# tins/day): No Frequency of alcohol use: Occasional Drug Abuse: None Lives with: Alone Family History: Reviewed & Not Pertinent Patient has suicidal ideation: No Patient has homicidal ideation: No - Past Medical History Cardiac Medical History: Denies: Hx Coronary Artery Disease, Hx Heart Attack, Hx Hypertension Pulmonary Medical History: Denies: Hx Asthma, Hx Bronchitis, Hx COPD, Hx Pneumonia Neurological Medical History: Denies: Hx Cerebrovascular Accident, Hx Seizures Renal/ Medical History: Denies: Hx Peritoneal Dialysis GI Medical History: Reports: Hx Gastroesophageal Reflux Disease Musculoskeletal Medical History: Denies Hx Arthritis Psychiatric Medical History: Reports: Hx Bipolar Disorder - anxiety, depression, Hx Depression - Immunizations Hx Diphtheria, Pertussis, Tetanus Vaccination: Yes Review of Systems - Review of Systems Notes: Constitutional: Negative for fever. Eyes: Negative for visual changes. ENT: Negative for facial injury Cardiovascular: Negative for chest injury. Respiratory: Negative for shortness of breath. Gastrointestinal: Negative for abdominal injury. Genitourinary: Negative for genital injury Musculoskeletal: Negative for back injury. Skin: Positive for laceration/abrasions. Neurological: Negative for head injury. Physical Exam - Vital signs Vitals: Temp Pulse Resp BP Pulse Ox 98.7 F 95 20 134/98 H 97 09/04/18 20:05 09/04/18 20:05 09/04/18 20:05 09/04/18 20:05 09/04/18 20:05 Interpretation: Normal Notes: PHYSICAL EXAMINATION: GENERAL: Well-appearing, well-nourished and in no acute distress. HEAD: Atraumatic, normocephalic. EYES: sclera anicteric, conjunctiva are normal. ENT: Moist mucous membranes. NECK: Normal range of motion LUNGS: Normal work of breathing HEART: 2+ radial pulses bilaterally EXTREMITIES: no pitting or edema. No cyanosis. Full flexion extension all digits of the left hand including against resistance. Full flexion extension of the elbow. NEUROLOGICAL: No focal neurological deficits. Moves all extremities spontaneously and on command. PSYCH: Normal mood, normal affect. SKIN: Warm, Dry, normal turgor, 7.5 cm laceration over the left elbow extending over to the left proximal forearm Course - Re-evaluation Re-evalutation: 09/04/18 21:24 Patient presents with a 7.5 cm laceration over the left elbow cut on metal. He has no other injuries. Full flexion extension at the elbow. RMU motor and sensory distribution intact. He is right-hand dominant. Wound was irrigated and closed with a continuous running stitch without complication. Tetanus is already up-to-date. At this time will discharge with return precautions and follow-up recommendations. Verbal discharge instructions given a the bedside and opportunity for questions given. Medication warnings reviewed. Patient is in agreement with this plan and has verbalized understanding of return precautions and the need for primary care follow-up in 1 week. - Vital Signs Vital signs: Temp Pulse Resp BP Pulse Ox 98.0 F 90 17 127/90 H 97 09/04/18 21:39 09/04/18 21:39 09/04/18 21:39 09/04/18 21:39 09/04/18 21:39 Procedures - Laceration/Wound Repair Left Elbow Wound length (cm): 7.5 Wound's Depth, Shape: Superficial, Linear Laceration pre-procedure: Sterile PPE donned Anesthetic type: 1% Lidocaine w/epi Volume Anesthetic (mLs): 3 Wound explored: Clean Irrigated w/ Saline (mLs): 500 Wound Debrided: Minimal Wound Repaired With: Sutures Suture Size/Type: 4:0, Prolene Number of Sutures: 1 - Continuous running stitch Layer Closure?: No Post-procedure wound care: Sterile dressing applied Post-procedure NV exam normal: Yes Complications: No Discharge - Discharge Clinical Impression: Laceration of left elbow Qualifiers: Encounter type: initial encounter Qualified Code(s): S51.012A - Laceration without foreign body of left elbow, initial encounter Condition: Good Disposition: HOME, SELF-CARE Additional Instructions: Please return to your primary doctor, the ED, or an urgent care in 7 days for suture removal. Return immediately if you develop spreading redness around the wound, pus from the wound, worsening pain, or a fever of >100.4. Keep the area clean and dry. Wash gently with soap and water twice daily and cover with antibiotic ointment.
[2018-09-04 21:47] VITALS: BP 127/90
== END 2018-09-04 21:41 | disposition home or self-care (01) ==
LOC: ER 20:00
DX: S51.012A Laceration without foreign body of left elbow, initial encounter (principal); S51.812A Laceration without foreign body of left forearm, initial encounter; W45.8XXA Other foreign body or object entering through skin, initial encounter; Y93.89 Activity, other specified; Z88.0 Allergy status to penicillin; F17.200 Nicotine dependence, unspecified, uncomplicated
CPT/HCPCS: 99282; 12002; J3490

== ENCOUNTER 2018-12-13 18:19 | Emergency (ER) | payer BC ==
[2018-12-13 19:12] VITALS: BP 133/93
[2018-12-13] MEDS ORDERED: LIDOCAINE 2% JELLY 30 ML TUBE TOP ONE (19:29)
--- NOTE | 2018-12-13 19:32 | ER Document Report ---
ED Medical Screen (RME) - General Chief Complaint: Rectal Bleeding Stated Complaint: BUTTOCKS PAIN Time Seen by Provider: 12/13/18 19:28 TRAVEL OUTSIDE OF THE [place] IN LAST 30 DAYS: No - HPI Notes: 12/13/18 19:30 Patient is a 38-year-old male with a history of hemorrhoids and polyps who presents complaining of bleeding and severe hemorrhoidal pain. Patient states that he does feel something sticking out of his rectum. Patient states that pressure and sitting makes the pain worse. He is otherwise able to eat and drink without difficulty. He is urinating normally. Denies SLAINAS, fever, neck pain, URI, CP, SOB, Abd pain, dysuria, back pain, or rash. I have treated and performed a rapid initial assessment of this patient. A comprehensive ED assessment and evaluation of the patient, analysis of test results and completion of medical decision making process will be conducted by additional ED providers. PHYSICAL EXAMINATION: GENERAL: Well-appearing, well-nourished and in no acute distress. A&Ox4. Answers questions appropriately. LUNGS: Breath sounds clear to auscultation bilaterally and equal. No wheezes rales or rhonchi. HEART: Regular rate and rhythm without murmurs, rubs, gallops. ABDOMEN: Soft, nondistended abdomen. No guarding, no rebound. Normal bowel sounds present. No CVA tenderness bilaterally. Grossly nontender (cannot elicit thorough abd exam w/o bed, however). - Related Data Allergies/Adverse Reactions: Penicillins Allergy (Verified 12/13/18 19:08) Past Medical History - Social History Family history: None - Past Medical History Cardiac Medical History: Denies: Hx Coronary Artery Disease, Hx Heart Attack, Hx Hypertension Pulmonary Medical History: Denies: Hx Asthma, Hx Bronchitis, Hx COPD, Hx Pneumonia Neurological Medical History: Denies: Hx Cerebrovascular Accident, Hx Seizures Renal/ Medical History: Denies: Hx Peritoneal Dialysis GI Medical History: Reports: Hx Gastroesophageal Reflux Disease Musculoskeltal Medical History: Denies Hx Arthritis Psychiatric Medical History: Reports: Hx Bipolar Disorder - anxiety, depression, Hx Depression - Immunizations Hx Diphtheria, Pertussis, Tetanus Vaccination: Yes History of Influenza Vaccine for 04/2017 - 09/2017 Season: No Physical Exam - Vital signs Vitals: Temp Pulse Resp BP Pulse Ox 98.1 F 102 H 18 133/93 H 98 12/13/18 19:10 12/13/18 19:10 12/13/18 19:10 12/13/18 19:10 12/13/18 19:10 Course - Vital Signs Vital signs: Temp Pulse Resp BP Pulse Ox 98.1 F 102 H 18 133/93 H 98 12/13/18 19:10 12/13/18 19:10 12/13/18 19:10 12/13/18 19:10 12/13/18 19:10
--- NOTE | 2018-12-13 20:35 | ER Document Report ---
HPI - HPI Patient complains to provider of: Hemorrhoid pain Time Seen by Provider: 12/13/18 19:28 Onset/Duration: Persistent Quality of pain: Sharp Pain Level: 4 Context: Patient complains of flareup of rectal hemorrhoids for the past 3 days. Patient states he went to an urgent care today and was given a prescription for hemorrhoidal cream. Patient states that he was advised that if he had bleeding he should come to the emergency department. Patient does state that he has had a colonoscopy last month that only found hemorrhoids and is followed by a trust manager. Patient states that he does have an appointment with his trust manager to have surgical removal of his hemorrhoids in 2 days. Patient denies any rectal trauma or anal intercourse. Patient denies any problems with constipation. Associated Symptoms: Other - Rectal pain. denies: Fever Exacerbated by: Movement Relieved by: Denies Similar symptoms previously: Yes Recently seen / treated by doctor: Yes - ROS ROS below otherwise negative: Yes Systems Reviewed and Negative: Yes All other systems reviewed and negative - CONSTITUTIONAL Constitutional: DENIES: Fever, Chills - NEURO Neurology: DENIES: Weakness - GASTROINTESTINAL Gastrointestinal: DENIES: Abdominal Pain, Nausea, Constipation Notes: Hemorrhoids - REPRODUCTIVE Reproductive: DENIES: : - DERM Skin Color: Normal Skin Problems: None Past Medical History - General Information source: Patient - Social History Smoking Status: Never Smoker Frequency of alcohol use: Occasional Drug Abuse: None Occupation: Sales Family History: Reviewed & Not Pertinent Patient has suicidal ideation: No Patient has homicidal ideation: No Renal/ Medical History: Denies: Hx Peritoneal Dialysis GI Medical History: Reports: Hx Gastroesophageal Reflux Disease Musculoskeletal Medical History: Denies Hx Arthritis Psychiatric Medical History: Reports: Hx Anxiety, Hx Bipolar Disorder, Hx Depression Past Surgical History: Reports: Hx Orthopedic Surgery - Immunizations Hx Diphtheria, Pertussis, Tetanus Vaccination: Yes Vertical Provider Document - CONSTITUTIONAL Agree With Documented VS: Yes Exam Limitations: No Limitations General Appearance: WD/WN, No Apparent Distress - INFECTION CONTROL TRAVEL OUTSIDE OF THE [place] IN LAST 30 DAYS: No - HEENT HEENT: Atraumatic, Normocephalic - NECK Neck: Normal Inspection - RESPIRATORY Respiratory: Breath Sounds Normal, No Respiratory Distress - CARDIOVASCULAR Cardiovascular: Regular Rate, Regular Rhythm - GI/ABDOMEN Notes: Patient with hemorrhoids that are able to be reduced. No concern for thrombosis at this time. No purulent drainage, no concern for perianal abscess. PCT Cora as standby - MUSCULOSKELETAL/EXTREMETIES Musculoskeletal/Extremeties: MAEW - NEURO Level of Consciousness: Awake, Alert, Appropriate Motor/Sensory: No Motor Deficit - DERM Integumentary: Warm, Dry Course - Re-evaluation Re-evalutation: 12/13/18 20:33 Lidocaine jelly applied, patient much more comfortable at this time. Patient does have surgery scheduled in 2 days for hemorrhoidectomy. Patient encouraged to keep appointment as planned with surgeon. - Vital Signs Vital signs: Temp Pulse Resp BP Pulse Ox 98.1 F 102 H 18 133/93 H 98 12/13/18 19:10 12/13/18 19:10 12/13/18 19:10 12/13/18 19:10 12/13/18 19:10 Discharge - Discharge Clinical Impression: Hemorrhoids Qualifiers: Hemorrhoid type: unspecified Qualified Code(s): K64.9 - Unspecified hemorrhoids Condition: Stable Disposition: HOME, SELF-CARE Instructions: Hemorrhoids (OM) Additional Instructions: Return immediately for any new or worsening symptoms Followup with your primary care provider, call tomorrow to make a followup appointment Use of Tucks pads [id number] as directed. Use your prescribed hemorrhoid cream as directed. You may use the lidocaine jelly topically to the area every 6 hours as needed for pain relief. Follow-up with your trust manager for surgery as planned in 2 days. Forms: Return to Work Referrals: NELLI AGUAYO MD [ACTIVE STAFF] - 12/15/18
== END 2018-12-13 20:39 | disposition home or self-care (01) ==
LOC: ER 18:19
DX: K64.9 Unspecified hemorrhoids (principal)
CPT/HCPCS: 99283

== ENCOUNTER 2018-12-14 19:01 | Emergency (ER) | payer BC ==
--- NOTE | 2018-12-14 20:29 | ER Document Report ---
ED Medical Screen (RME) - General Chief Complaint: Hemorrhoids Stated Complaint: BODY PAIN Time Seen by Provider: 12/14/18 20:27 Mode of Arrival: Ambulatory Information source: Patient Notes: 38-year-old male presented to ED for complaint of increased pain to his hemorrhoid. He was states she has had a flare of his hemorrhoid for 3 days. He states he was seen at the urgent care received some creams for the hemorrhoid and then was seen in the emergency room last night and they gave him some lidocaine. He states the pain is a lot worse when she tried to have a bowel movement earlier today and the pain was so bad that he just gave up on it. He states only medical history is ACL repair cyst removed from his throat and a colonoscopy. He states he does dip a can of tobacco a day does not smoke drink or do any drugs. Patient is alert oriented respirations regular and unlabored speaking in full sentences walks with a even steady gait. He states there is no bleeding to the area. I have greeted and performed a rapid initial assessment of this patient. A comprehensive ED assessment and evaluation of the patient, analysis of test results and completion of medical decision making process will be conducted by an additional ED providers. Dictation of this chart was performed using voice recognition software; therefore, there may be some unintended grammatical errors. TRAVEL OUTSIDE OF THE [place] IN LAST 30 DAYS: No - Related Data Allergies/Adverse Reactions: Penicillins Allergy (Verified 12/13/18 19:08) Past Medical History - Social History Family history: None - Past Medical History Cardiac Medical History: Denies: Hx Coronary Artery Disease, Hx Heart Attack, Hx Hypertension Pulmonary Medical History: Denies: Hx Asthma, Hx Bronchitis, Hx COPD, Hx Pneumonia Neurological Medical History: Denies: Hx Cerebrovascular Accident, Hx Seizures Renal/ Medical History: Denies: Hx Peritoneal Dialysis GI Medical History: Reports: Hx Gastroesophageal Reflux Disease Musculoskeltal Medical History: Denies Hx Arthritis Psychiatric Medical History: Reports: Hx Anxiety, Hx Bipolar Disorder, Hx Depression Past Surgical History: Reports: Hx Orthopedic Surgery - Immunizations Hx Diphtheria, Pertussis, Tetanus Vaccination: Yes History of Influenza Vaccine for 04/2017 - 09/2017 Season: No Physical Exam - Vital signs Vitals: Temp Pulse Resp BP Pulse Ox 98.0 F 114 H 18 175/87 H 99 12/14/18 20:04 12/14/18 20:04 12/14/18 20:04 12/14/18 20:04 12/14/18 20:04 Course - Vital Signs Vital signs: Temp Pulse Resp BP Pulse Ox 98.0 F 114 H 18 175/87 H 99 12/14/18 20:04 12/14/18 20:04 12/14/18 20:04 12/14/18 20:04 12/14/18 20:04
[2018-12-15] MEDS ORDERED: HYDROMORPHONE HCL INJ/PF 2 MG/ML AMPULE IM ONE (01:02)
[2018-12-15] MEDS ORDERED: HYDROCODONE/ACETAMINOPHEN 5-325 MG (6 TAB/ER DISP) PO PRN (01:02)
--- NOTE | 2018-12-15 01:03 | ER Document Report ---
ED General - General Chief Complaint: Hemorrhoids Stated Complaint: BODY PAIN Time Seen by Provider: 12/14/18 20:27 Mode of Arrival: Ambulatory Notes: Patient is a 38-year-old male who presents with complaint of pain from his hemorrhoids. He was seen here yesterday. Was placed on lidocaine cream and Tucks pads. He says been using these but the pain is intractable. He is due to have surgery on his hemorrhoids tomorrow morning. Please see Dr. Whitlock for this. He says he just needs something to help control the pain until then. No fevers. No other complaints at this time. TRAVEL OUTSIDE OF THE [place] IN LAST 30 DAYS: No - Related Data Allergies/Adverse Reactions: Penicillins Allergy (Verified 12/13/18 19:08) Past Medical History - General Information source: Patient - Social History Smoking Status: Never Smoker Chew tobacco use (# tins/day): Yes Frequency of alcohol use: None Drug Abuse: None Family History: Reviewed & Not Pertinent Patient has suicidal ideation: No Patient has homicidal ideation: No - Past Medical History Cardiac Medical History: Denies: Hx Coronary Artery Disease, Hx Heart Attack, Hx Hypertension Pulmonary Medical History: Denies: Hx Asthma, Hx Bronchitis, Hx COPD, Hx Pneumonia Neurological Medical History: Denies: Hx Cerebrovascular Accident, Hx Seizures Renal/ Medical History: Denies: Hx Peritoneal Dialysis GI Medical History: Reports: Hx Gastroesophageal Reflux Disease Musculoskeletal Medical History: Denies Hx Arthritis Psychiatric Medical History: Reports: Hx Anxiety, Hx Bipolar Disorder, Hx Depression Past Surgical History: Reports: Hx Orthopedic Surgery - Immunizations Hx Diphtheria, Pertussis, Tetanus Vaccination: Yes Review of Systems - Review of Systems Notes: My Normal Review Basic REVIEW OF SYSTEMS: CONSTITUTIONAL : Denies fever, chills, or sweats. Denies recent illness. GASTROINTESTINAL: Denies abdominal pain. Denies nausea, vomiting, or diarrhea. Rectal: Hemorrhoids causing pain. MUSCULOSKELETAL: Denies neck or back pain or joint pain or swelling. SKIN: Denies rash or skin lesions. NEUROLOGICAL: Denies altered mental status or loss of consciousness. ALL OTHER SYSTEMS REVIEWED AND NEGATIVE. Physical Exam - Vital signs Vitals: Temp Pulse Resp BP Pulse Ox 98.0 F 114 H 18 175/87 H 99 12/14/18 20:04 12/14/18 20:04 12/14/18 20:04 12/14/18 20:04 12/14/18 20:04 - Notes Notes: General Appearance: Well nourished, alert, cooperative, no acute distress, m oderate obvious discomfort. Vitals: reviewed, See vital signs table. Eyes: PERRL, EOMI, Conjuctiva clear To exam: Patient is multiple enlarged hemorrhoids. They are soft to palpation. I do not appreciate an clot with palpation of the hemorrhoid. They are extremely tender with any palpation touching the hemorrhoid. No active bleeding at this time. No surrounding redness or swelling to the rectal area. Neuro: speech clear, oriented x 3, normal affect, responds appropriately to questions. Course - Re-evaluation Re-evalutation: 12/15/18 01:05 Patient does have hemorrhoids on exam. She does have some engorged hemorrhage. There is soft and did not appear to be thrombosed at this time. They are very very tender to palpation. Normal I do not give opiates for hemorrhoids as it can make worsening constipation which can increase hemorrhoids after being on these medicines for a while however the patient is having surgery tomorrow and therefore I think is appropriate to try to keep his pain under control until he gets his surgery performed tomorrow. I therefore gave him a small bottle of Stonewall to take home. He is to follow-up with Dr. Whitlock tomorrow for his hemorrhoid surgery. I encouraged him return to ER if he has worsening of his symptoms, fevers, or large amount blood in stool. Patient agrees with plan and will be discharged home. Dictation of this chart was performed using voice recognition software; therefore, there may be some unintended grammatical errors. - Vital Signs Vital signs: Temp Pulse Resp BP Pulse Ox 98.0 F 114 H 18 175/87 H 99 12/14/18 20:04 12/14/18 20:04 12/14/18 20:04 12/14/18 20:04 12/14/18 20:04 Discharge - Discharge Clinical Impression: Hemorrhoids Qualifiers: Hemorrhoid type: unspecified Qualified Code(s): K64.9 - Unspecified hemorrhoids Condition: Good Disposition: HOME, SELF-CARE Additional Instructions: Please continue treatment with Tucks pads and lidocaine jelly. We have given you a small bottle of Stonewall. This is a stronger pain medicine which she cannot drive after taking. Please be aware that Melissa does have Tylenol (acetaminophen) in it. Please make sure you do not take more than 4000 mg of acetaminophen a day. Do not drive or care for children after you have taken this medication they will make you sleepy and sometimes impair judgment. You can take these to help keep your pain under control until you see Dr. Whitlock tomorrow for your surgery for your hemorrhoid removal. Please to the ER if you have fevers, large amount bleeding from the rectum, or if you feel that you are worsening in any way. Forms: Return to Work
[2018-12-15 01:51] VITALS: BP 141/93
== END 2018-12-15 01:48 | disposition home or self-care (01) ==
LOC: ER 19:01
DX: K64.9 Unspecified hemorrhoids (principal); Z72.0 Tobacco use; Z88.0 Allergy status to penicillin
CPT/HCPCS: 99282; 96372; J1170

== ENCOUNTER 2019-07-03 06:49 | Day surgery (SDC) | payer BC ==
[~2019-07-03 06:49] MED LIST: DEXAMETHASONE SOD PHOSPHATE INJ 4 MG/1 ML VIAL ONE; KETOROLAC TROMETHAMINE 60 MG/2 ML SDV ONE; LACTATED RINGERS 1000 ML IV PRN; LIDOCAINE 0.5% INJ-PF (5 MG/ML) 50 ML SDV SUBCUT PRN; ONDANSETRON HCL INJ/PF 4 MG/2 ML SDV ONE
[2019-07-03] MEDS ORDERED: PROPOFOL INJ 200 MG/20 ML VIAL IV ONE (06:58)
[2019-07-03] MEDS ORDERED: FENTANYL CITRATE INJ/PF 100 MCG/2 ML AMPUL ONE (06:58)
[2019-07-03] MEDS ORDERED: MIDAZOLAM 2 MG/2 ML INJ ONE (06:58)
[2019-07-03] MEDS ORDERED: BUPIVACAINE INJ/PF LIPOSOME/PF 266 MG/20 ML SDV ONE (08:56)
[2019-07-03] MEDS ORDERED: OXYCODONE-ACETAMINOPHEN 5-325 MG TABLET PO PRN ×2 (09:34)
[2019-07-03] MEDS ORDERED: MORPHINE SULFATE 10 MG/ML INJ IV PRN (09:34)
[2019-07-03] MEDS ORDERED: FENTANYL CITRATE INJ/PF 100 MCG/2 ML AMPUL IV PRN ×3 (09:34)
[2019-07-03] MEDS ORDERED: DIPHENHYDRAMINE HCL 50 MG/ML VIAL IV PRN (09:34)
[2019-07-03] MEDS ORDERED: ONDANSETRON HCL INJ/PF 4 MG/2 ML SDV IV PRN (09:34)
[2019-07-03] MEDS ORDERED: MEPERIDINE HCL/PF INJ 25 MG/1 ML DISP.SYRIN IV PRN (09:34)
[2019-07-03] MEDS ORDERED: PROMETHAZINE HCL INJ 25 MG/1 ML VIAL IV PRN (09:34)
[2019-07-03] MEDS ORDERED: BUPIVACAINE INJ/PF LIPOSOME/PF 266 MG/20 ML SDV INJ ONE (09:45)
--- NOTE | 2019-07-03 09:53 | Operative Report ---
Nonrecallable Operative Report DATE OF SURGERY: 07/03/19 PREOPERATIVE DIAGNOSIS: Grade 3 hemorrhoids POSTOPERATIVE DIAGNOSIS: Grade 3 hemorrhoids OPERATION: Hemorrhoidectomy and hemorrhoidal banding SURGEON: ISH RAHMAN ANESTHESIA: GA TISSUE REMOVED OR ALTERED: Hemorrhoids x2 COMPLICATIONS: None ESTIMATED BLOOD LOSS: 50 cc INTRAOPERATIVE FINDINGS: Grade 3 hemorrhoids PROCEDURE: Patient was brought to the operating room awake alert stable condition placed in the upper table supine position induced under general anesthesia and given LMAC anesthesia. He was placed up in a high lithotomy position. After appropriate timeout and site verification the procedure was commenced. The perineum was prepped and draped in usual sterile fashion. Digital examination revealed no evidence of a anal mass. The anoscope was then placed into the rectum we examined all 4 quadrants. At 11:00 7:00 and 4 o'clock position were large reduced grade 3 hemorrhoids. The hemorrhoidal band tuft at the level o'clock position was banded x2 with rubber bands. The hemorrhoids at 4:00 and 7 o'clock position were too large to be banded. Therefore they were excised in the following fashion. A 2-0 Vicryl stitch was placed at the apex of each hemorrhoidal tuft and then using Bovie cautery the hemorrhoidal joya was excised down to the muscularis with the Bovie cautery and removed and sent for pathology. The mucosa was then reapproximated with a running 2-0 Vicryl suture. This occurred on 2 separate hemorrhoidal joya the one at 4:00 and one at 7:00. All 3 hemorrhoidal joya were anesthetized then with Exparel solution in the submucosa. Estimated blood loss for the procedure was 50 cc sponge needle counts were correct x2 he was taken out of lithotomy position placed on the transport [place] and transferred to recovery room in stable condition.
--- NOTE | 2019-07-03 09:55 | Discharge Summary ---
Discharge Summary (SDC) - Discharge Final Diagnosis: Grade 3 hemorrhoids Date of Surgery: 07/03/19 Discharge Date: 07/03/19 Condition: Good Discharge Diet: As Tolerated Discharge Activity: Activity As Tolerated, No Lifting Over 10 Pounds Report the Following to Your Physician Immediately: Unusual Bleeding - Follow-up in surgical clinic in 2 weeks
[2019-07-03] MEDS ORDERED: OXYCODONE-ACETAMINOPHEN 5-325 MG TABLET ONE (10:59)
[2019-07-03 12:46] VITALS: BP 135/85
== END 2019-07-03 12:15 | disposition home or self-care (01) ==
LOC: OROUT 06:49
PROVIDERS: ATTEND Surgery
DX: K64.2 Third degree hemorrhoids (principal); K62.89 Other specified diseases of anus and rectum; K62.5 Hemorrhage of anus and rectum; Z88.0 Allergy status to penicillin; Z79.899 Other long term (current) drug therapy
CPT/HCPCS: 88304 ×2; 00902; 46221; J2250; J1100; J1885; J3010; J2405; J2704; C9290; 902

== ENCOUNTER 2019-07-05 16:18 | Emergency (ER) | payer SELFPAY ==
[2019-07-05] MEDS ORDERED: RINGERS SOLUTION,LACTATED 2,000 ML IV PRN (16:49)
--- NOTE | 2019-07-05 16:53 | ER Document Report ---
ED Medical Screen (RME) - General Chief Complaint: Fever Stated Complaint: FEVER, SHORT OF BREATH/POST SURGERY Time Seen by Provider: 07/05/19 16:43 Notes: 39-year-old male POD#2 s/p hemorrhoidectomy presents to the emergency department with fevers, cough, body aches that started this morning. Patient checked his temperature at home and it was greater than 101 and was instructed to seek treatment if he developed a symptoms that he is having. Patient states every time he coughs he feels a significant pressure in his anus. Exam: Mildly ill-appearing, tachycardia with rate of 126, regular rhythm I have greeted and performed a rapid initial assessment of this patient. A comprehensive ED assessment and evaluation of the patient, analysis of test results and completion of medical decision making process will be conducted by an additional ED providers. TRAVEL OUTSIDE OF THE [place] IN LAST 30 DAYS: No - Related Data Allergies/Adverse Reactions: Penicillins Allergy (Verified 07/05/19 16:41) Home Medications: Percocet Past Medical History - Social History Chew tobacco use (# tins/day): No Drug Abuse: None Family history: None - Past Medical History Cardiac Medical History: Denies: Hx Coronary Artery Disease, Hx Heart Attack, Hx Hypertension Pulmonary Medical History: Denies: Hx Asthma, Hx Bronchitis, Hx COPD, Hx Pneumonia Neurological Medical History: Denies: Hx Cerebrovascular Accident, Hx Seizures Renal/ Medical History: Denies: Hx Peritoneal Dialysis GI Medical History: Reports: Hx Gastroesophageal Reflux Disease Musculoskeltal Medical History: Denies Hx Arthritis Psychiatric Medical History: Reports: Hx Anxiety, Hx Bipolar Disorder, Hx Depression Past Surgical History: Reports: Hx Orthopedic Surgery - Immunizations Hx Diphtheria, Pertussis, Tetanus Vaccination: Yes Physical Exam - Vital signs Vitals: Temp Pulse Resp BP Pulse Ox 99.1 F 125 H 18 121/74 93 07/05/19 16:21 07/05/19 16:21 07/05/19 16:21 07/05/19 16:21 07/05/19 16:21 Course - Vital Signs Vital signs: Temp Pulse Resp BP Pulse Ox 99.1 F 125 H 18 121/74 93 07/05/19 16:21 07/05/19 16:21 07/05/19 16:21 07/05/19 16:21 07/05/19 16:21
--- NOTE | 2019-07-05 17:23 | RADIOLOGY REPORT (SQ) ---
EXAM DESCRIPTION: CHEST 2 VIEWS COMPLETED DATE/TIME: 07/05/2019 4:59 pm REASON FOR STUDY: Cough, 48 hours postop COMPARISON: 07/27/2017. TECHNIQUE: Frontal and lateral radiographic views of the chest acquired. NUMBER OF VIEWS: Two view. LIMITATIONS: None. FINDINGS: LUNGS AND PLEURA: Bibasilar linear opacities in the lungs, progressive since 2018. Suspec bernice subsegmental atelectasis superimposed on scar. No consolidating pneumonia appreciated. No pneum othorax. MEDIASTINUM AND HILAR STRUCTURES: No masses or contour abnormalities. HEART AND VASCULAR STRUCTURES: Heart normal size. No evidence for failure. BONES: No acute findings. HARDWARE: None in the chest. OTHER: No other significant finding. IMPRESSION: Bibasilar scarring and subsegmental atelectasis. TECHNICAL DOCUMENTATION: JOB ID: [id number] [employer]- All Rights Reserved Reading location - IP/workstation name: [email or web address]
[2019-07-05] MEDS ORDERED: NORMAL SALINE 1000 ML 1,000 ML IV ONE ×2 (18:00→19:27)
[2019-07-05 18:04] LABS: APPEARANCE,URINE CLEAR; BILIRUBIN,URINE NEGATIVE (NEGATIVE); COLOR,URINE YELLOW; GLUCOSE, URINE 50 mg/dL (NEGATIVE); KETONES,URINE NEGATIVE (NEGATIVE); PROTEIN,URINE NEGATIVE (NEGATIVE); URINE SPECIFIC GRAVITY 1.028
[2019-07-05 18:21] LABS: ABSOLUTE EOSINOPHILS # (AUTO) 0.2 10^3/uL (0.0-0.6); ABSOLUTE MONOCYTES (AUTO) 0.5 10^3/uL (0.1-1.4); ABSOLUTE NEUT (AUTO) 6.1 10^3/uL (1.7-8.2); BASOPHILS % (AUTO) 0.3 % (0-2); EOSINOPHILS % (AUTO) 3.1 % (0-6); HEMATOCRIT 40.7 % (37.9-51.0); HEMOGLOBIN 14.2 g/dL (13.5-17.0); LYMPHOCYTES % (AUTO) 12.5 % (13-45); MEAN CORPUSCULAR HEMOGLOBIN 32.2 pg (27.0-33.4); MEAN CORPUSCULAR VOLUME 92 fl (80-97); MONOCYTES % (AUTO) 6.2 % (3-13); PLATELET COUNT 182 10^3/uL (150-450); RED BLOOD COUNT 4.42 10^6/uL (4.35-5.55); RED CELL DISTRIBUTION WIDTH 14.3 % (11.5-14.0); SEGMENTED NEUTROPHILS % (AUTO) 77.9 % (42-78); TOTAL CELLS COUNTED % (AUTO) 100 %; WHITE BLOOD COUNT 7.9 10^3/uL (4.0-10.5)
[2019-07-05 18:25] LABS: ALBUMIN 3.6 g/dL (3.5-5.0); ALKALINE PHOSPHATASE 61 U/L (38-126); ANION GAP 11 (5-19); ASPARTATE AMINO TRANSFERASE 29 U/L (17-59); BILIRUBIN,DIRECT 0.2 mg/dL (0.0-0.4); BILIRUBIN,TOTAL 0.6 mg/dL (0.2-1.3); BLOOD UREA NITROGEN 13 mg/dL (7-20); CALCIUM 8.8 mg/dL (8.4-10.2); CARBON DIOXIDE 28 mmol/L (22-30); CHLORIDE 99 mmol/L (98-107); GLUCOSE 94 mg/dL (75-110); POTASSIUM 3.9 mmol/L (3.6-5.0); TOTAL PROTEIN 6.4 g/dL (6.3-8.2)
--- NOTE | 2019-07-05 18:40 | EKG REPORT ---
SEVERITY:- OTHERWISE NORMAL ECG - SINUS TACHYCARDIA : Confirmed by: Hakeem Mcneil MD 05-Jul-2019 18:39:26
[2019-07-05] MEDS ORDERED: MORPHINE SULFATE 10 MG/ML INJ IV ONE (19:26)
[2019-07-05] MEDS ORDERED: BENZONATATE 100 MG CAPSULE PO ONE (19:26)
--- NOTE | 2019-07-05 19:59 | ER Document Report ---
ED General - General Chief Complaint: Fever Stated Complaint: FEVER, SHORT OF BREATH/POST SURGERY Time Seen by Provider: 07/05/19 16:43 Primary Care Provider: [facility] [Provider Group] - Follow up in 3-5 days RAS GUTIERRES MD [ACTIVE STAFF] - Follow up in 3-5 days Notes: 39 y/o male presents with cough, fever, nasal congestion that started this morning. Patient has associated body aches and nausea. Patient is 2 days post hemorrhoidectomy. Patient states fever of 101.5 degrees at home. Patient states he took a Percocet prior to arrival. Patient states when he is coughing he cannot swallow but otherwise is fine. Patient denies any vomiting, chest pain, shortness of breath, abdominal pain. TRAVEL OUTSIDE OF THE [place] IN LAST 30 DAYS: No - Related Data Allergies/Adverse Reactions: Penicillins Allergy (Verified 07/05/19 16:41) Home Medications: Percocet Past Medical History - Social History Smoking Status: Former Smoker Chew tobacco use (# tins/day): No Drug Abuse: None Family History: Reviewed & Not Pertinent Patient has suicidal ideation: No Patient has homicidal ideation: No - Past Medical History Cardiac Medical History: Denies: Hx Coronary Artery Disease, Hx Heart Attack, Hx Hypertension Pulmonary Medical History: Denies: Hx Asthma, Hx Bronchitis, Hx COPD, Hx Pneumonia Neurological Medical History: Denies: Hx Cerebrovascular Accident, Hx Seizures Renal/ Medical History: Denies: Hx Peritoneal Dialysis GI Medical History: Reports: Hx Gastroesophageal Reflux Disease Musculoskeletal Medical History: Denies Hx Arthritis Psychiatric Medical History: Reports: Hx Anxiety, Hx Bipolar Disorder, Hx Depression Past Surgical History: Reports: Hx Orthopedic Surgery - Immunizations Hx Diphtheria, Pertussis, Tetanus Vaccination: Yes Review of Systems - Review of Systems Notes: Constitutional: Positive for fever. HENT: Positive for nasal congestion. Negative for sore throat. Eyes: Negative for visual changes. Cardiovascular: Negative for chest pain. Respiratory: Positive for cough. Negative for shortness of breath. Gastrointestinal: Negative for abdominal pain, vomiting or diarrhea. Genitourinary: Negative for dysuria. Musculoskeletal: Negative for back pain. Skin: Negative for rash. Neurological: Negative for headaches, weakness or numbness. 10 point ROS negative except as marked above and in HPI. Physical Exam - Vital signs Vitals: Temp Pulse Resp BP Pulse Ox 99.1 F 125 H 18 121/74 93 07/05/19 16:21 07/05/19 16:21 07/05/19 16:21 07/05/19 16:21 07/05/19 16:21 - Notes Notes: GENERAL: Well-appearing, well-nourished and in no acute distress. HEAD: Atraumatic, normocephalic. EYES: Extraocular movements intact, sclera anicteric, conjunctiva are normal. ENT: TMs normal, nares patent, oropharynx clear without exudates. Moist mucous membranes. NECK: Normal range of motion, supple without lymphadenopathy or JVD. LUNGS: Breath sounds clear to auscultation bilaterally and equal. No wheezes rales or rhonchi. HEART: Regular rate and rhythm without murmurs, rubs or gallops. ABDOMEN: Soft, nontender. No guarding, no rebound. No masses appreciated. EXTREMITIES: Normal range of motion, no pitting or edema. No clubbing or cyanosis. NEUROLOGICAL: Cranial nerves II through XII grossly intact. Normal speech, normal gait. PSYCH: Normal mood, normal affect. SKIN: Warm, Dry, normal turgor, no rashes or lesions noted. Course - Re-evaluation Re-evalutation: 07/05/19 nontoxic, well-appearing 39-year-old male presents with acute URI symptoms with fever. Patient had hemorrhoidectomy 2 days ago. Lungs clear to auscultation bilaterally. Regular rate and rhythm. Abdomen soft nontender. PE is otherwise unremarkable. Chest x-ray negative. CBC is within normal limits with no leukocytosis (WBC 7.9). CMP is within normal limits except for mildly bumped creatinine of 1.28. Urine is negative for infection. Flu test is negative. Will treat patient for acute URI and instruct patient to alternate Tylenol and Motrin every 3 days. Strict return precautions. Discussed all results with patient. Patient given close follow-up with PCP. Patient voices understanding and agrees with plan of care. - Vital Signs Vital signs: Temp Pulse Resp BP Pulse Ox 99.1 F 125 H 18 121/74 93 07/05/19 16:21 07/05/19 16:21 07/05/19 16:21 07/05/19 16:21 07/05/19 16:21 - Laboratory Result Diagrams: 07/05/19 17:42 07/05/19 17:42 Laboratory results interpreted by me: 07/05/19 07/05/19 07/05/19 17:08 17:42 17:42 RDW 14.3 H Lymph % (Auto) 12.5 L Creatinine 1.28 H Urine Glucose (UA) 50 H Urine Urobilinogen 4.0 H Discharge - Discharge Clinical Impression: Acute URI, Nausea Fever Qualifiers: Fever type: unspecified Qualified Code(s): R50.9 - Fever, unspecified Condition: Stable Disposition: HOME, SELF-CARE Instructions: Fever ([facility]), Upper Respiratory Illness ([facility]) Additional Instructions: Please take medications as prescribed. Please alternate Tylenol and Motrin every 3 hours (for example: take tylenol now, then 3 hours later take motrin, then 3 hours later take Tylenol, etc). Your lab work was reassuring today. He did not have an elevated white count. Your urine did not show an infection. Your chest x-ray did not show pneumonia. Your flu test was negative. Please follow-up with your primary care doctor in 3 to 5 days. Return to ER for any worsening symptoms, including fever not controlled by medication, vomiting not controlled by medication, abdominal pain, worsening pain, pus drainage from anywhere, redness, increased swelling, chest pain, shortness of breath, or any other symptoms that are concerning to you. Prescriptions: Ondansetron [Zofran Odt 4 mg Tablet] 4 mg PO Q4HP PRN #30 tab.rapdis PRN Reason: Benzonatate [Tessalon Perles 100 mg Capsule] 100 mg PO Q8HP PRN #40 capsule PRN Reason: Fexofenadine/Pseudoephedrine [Jaimee-D 24 Hour Tablet] 1 each PO DAILY #20 tab.er.24h Fluticasone Propionate [Flonase Nasal Eaton 50 Mcg/Eaton 16 gm] 2 sprays NASL Q12 #1 inhaler Referrals: RAS GUTIERRES MD [ACTIVE STAFF] - Follow up in 3-5 days [facility] [Provider Group] - Follow up in 3-5 days
[2019-07-05 20:04] LABS: A TYPE INFLUENZA AG NEGATIVE (NEGATIVE); B INFLUENZA AG NEGATIVE (NEGATIVE)
[2019-07-05] MEDS ORDERED: ONDANSETRON ODT 4 MG TAB (6 TAB/ER DISP) PO PRN (20:20)
[2019-07-05 20:34] VITALS: BP 117/75
== END 2019-07-05 20:41 | disposition home or self-care (01) ==
LOC: ER 16:18
DX: J06.9 Acute upper respiratory infection, unspecified (principal); R50.9 Fever, unspecified; R11.0 Nausea; R06.02 Shortness of breath; R09.81 Nasal congestion; Z88.0 Allergy status to penicillin
CPT/HCPCS: 99284; 96361; 96374; 36415; 87040; 82962; 83605; 85025; 80053; 81001; 87804; 71046; 93005; 93010; J2270; J7030; J7120

== ENCOUNTER 2020-03-31 12:38 | Emergency (ER) | payer SELFPAY ==
[2020-03-31 13:45] LABS: ABSOLUTE LYMPHOCYTES (AUTO) 1.4 10^3/uL (0.5-4.7); ABSOLUTE MONOCYTES (AUTO) 0.5 10^3/uL (0.1-1.4); ABSOLUTE NEUT (AUTO) 6.1 10^3/uL (1.7-8.2); BASOPHILS % (AUTO) 0.5 % (0-2); EOSINOPHILS % (AUTO) 0.4 % (0-6); HEMATOCRIT 48.7 % (37.9-51.0); HEMOGLOBIN 17.4 g/dL (13.5-17.0); LYMPHOCYTES % (AUTO) 17.2 % (13-45); MEAN CORPUSCULAR HEMOGLOBIN 32.3 pg (27.0-33.4); MEAN CORPUSCULAR HGB CONC 35.6 g/dL (32.0-36.0); MEAN CORPUSCULAR VOLUME 91 fl (80-97); MONOCYTES % (AUTO) 6.1 % (3-13); PLATELET COUNT 223 10^3/uL (150-450); RED BLOOD COUNT 5.38 10^6/uL (4.35-5.55); RED CELL DISTRIBUTION WIDTH 13.2 % (11.5-14.0); SEGMENTED NEUTROPHILS % (AUTO) 75.8 % (42-78); TOTAL CELLS COUNTED % (AUTO) 100 %
[2020-03-31] MEDS: NORMAL SALINE 1000 ML 1,000 ML IV PRN ×2 (13:47→15:19)
[2020-03-31] MEDS ORDERED: KETOROLAC TROMETHAMINE INJ/PF 30 MG/1 ML SDV IV ONE (13:57)
[2020-03-31] MEDS ORDERED: ONDANSETRON HCL INJ/PF 4 MG/2 ML SDV IV ONE (13:57)
[2020-03-31 14:01] LABS: ALBUMIN 4.8 g/dL (3.5-5.0); ALKALINE PHOSPHATASE 73 U/L (38-126); ANION GAP 13 (5-19); ASPARTATE AMINO TRANSFERASE 23 U/L (17-59); BILIRUBIN,DIRECT 0.3 mg/dL (0.0-0.4); BILIRUBIN,TOTAL 1.6 mg/dL (0.2-1.3); BLOOD UREA NITROGEN 15 mg/dL (7-20); CALCIUM 9.9 mg/dL (8.4-10.2); CARBON DIOXIDE 25 mmol/L (22-30); CHLORIDE 100 mmol/L (98-107); GLUCOSE 125 mg/dL (75-110); TOTAL PROTEIN 7.8 g/dL (6.3-8.2)
[2020-03-31 14:49] LABS: APPEARANCE,URINE CLEAR; BILIRUBIN,URINE NEGATIVE (NEGATIVE); COLOR,URINE YELLOW; GLUCOSE, URINE NEGATIVE (NEGATIVE); KETONES,URINE 20 mg/dL (NEGATIVE); LEUKOCYTE ESTERASE,URINE NEGATIVE (NEGATIVE); NITRITE,URINE NEGATIVE (NEGATIVE); PROTEIN,URINE NEGATIVE (NEGATIVE); URINE SPECIFIC GRAVITY 1.011; UROBILINOGEN,URINE NEGATIVE mg/dL (<2.0)
--- NOTE | 2020-03-31 15:17 | RADIOLOGY REPORT (SQ) ---
EXAM DESCRIPTION: CHEST SINGLE VIEW IMAGES COMPLETED DATE/TIME: 03/31/2020 2:41 pm REASON FOR STUDY: dyspnea COMPARISON: 07/05/2019. EXAM PARAMETERS: NUMBER OF VIEWS: One view. TECHNIQUE: Single frontal radiographic view of the chest acquired. RADIATION DOSE: NA LIMITATIONS: None. FINDINGS: LUNGS AND PLEURA: No opacities, masses or pneumothorax. No pleural effusion. MEDIASTINUM AND HILAR STRUCTURES: No masses. Contour normal. HEART AND VASCULAR STRUCTURES: Heart normal in size. Normal vasculature. BONES: No acute findings. HARDWARE: None in the chest. OTHER: No other significant finding. IMPRESSION: NO ACUTE RADIOGRAPHIC FINDING IN THE CHEST. TECHNICAL DOCUMENTATION: JOB ID: [id number] 2010 [employer]- All Rights Reserved Reading location - IP/workstation name: [email or web address]
[2020-03-31 15:38] LABS: URINE AMPHETAMINES SCREEN NEGATIVE; URINE BARBITURATES SCREEN NEGATIVE; URINE BENZODIAZEPINES SCREEN NEGATIVE; URINE COCAINE SCREEN NEGATIVE; URINE MARIJUANA (THC) SCREEN NEGATIVE; URINE METHADONE SCREEN NEGATIVE; URINE PHENCYCLIDINE SCREEN NEGATIVE
--- NOTE | 2020-03-31 16:25 | ER Document Report ---
ED General - General Chief Complaint: Back Pain Stated Complaint: BACK PAIN Time Seen by Provider: 03/31/20 13:02 TRAVEL OUTSIDE OF THE U[place] IN LAST 30 DAYS: No - HPI Notes: CC: Back pain, fatigue, nausea History of present illness: Generally healthy 40-year-old male dates that he was traveling for his work to [facility] this past week became ill while he was traveling. He initially developed headache, myalgias, nausea and vomiting. He was seen in the emergency department at [facility]. He had blood and urine testing and a head CT and was told all the studies were normal. He received a bag of IV fluid and felt somewhat better and was discharged instructed to follow-up with his primary care physician. He does not currently have a primary care physician. He is taking no regular medications has no known allergies. He has been mildly anorectic and is not really eating since he became ill on . He denies any dysuria. He denies cough or shortness of breath. He denies skin rashes. He denies loss of sense of taste or smell. His headache has improved but he is having cramping in his upper mid back area. He denies fever or chills. He denies skin rashes. He denies any known exposure to sick individuals. He has not previously been tested for COVID. - Related Data Allergies/Adverse Reactions: Penicillins Allergy (Verified 03/31/20 13:03) Home Medications: chlonidine Past Medical History - General Information source: Patient - Social History Smoking Status: Current Some Day Smoker Chew tobacco use (# tins/day): No Frequency of alcohol use: None Lives with: Alone Family History: Reviewed & Not Pertinent Patient has homicidal ideation: No - Past Medical History Cardiac Medical History: Denies: Hx Coronary Artery Disease, Hx Heart Attack, Hx Hypertension Pulmonary Medical History: Denies: Hx Asthma, Hx Bronchitis, Hx COPD, Hx Pneumonia Neurological Medical History: Denies: Hx Cerebrovascular Accident, Hx Seizures Renal/ Medical History: Denies: Hx Peritoneal Dialysis GI Medical History: Reports: Hx Gastroesophageal Reflux Disease Musculoskeletal Medical History: Denies Hx Arthritis Psychiatric Medical History: Reports: Hx Anxiety, Hx Bipolar Disorder, Hx Depression Past Surgical History: Reports: Hx Orthopedic Surgery - Immunizations Hx Diphtheria, Pertussis, Tetanus Vaccination: Yes Review of Systems - Review of Systems Notes: Constitutional: Negative for fever. HENT: Negative for sore throat. Eyes: Negative for visual changes. Cardiovascular: Negative for chest pain. Respiratory: Negative for shortness of breath. Gastrointestinal: As per HPI. Genitourinary: Negative for dysuria. Musculoskeletal: As per HPI. Skin: Negative for rash. Neurological: As per HPI. 10 point ROS negative except as marked above and in HPI. Physical Exam - Vital signs Vitals: Temp Pulse Resp BP Pulse Ox 98.5 F 143 H 20 164/100 H 100 03/31/20 12:47 03/31/20 12:47 03/31/20 12:47 03/31/20 12:47 03/31/20 12:47 Course - Re-evaluation Re-evalutation: 03/31/20 16:27 Patient was clinically dehydrated and labs were consistent with hemoconcentration. Urine is microscopically clear. Chest x-ray normal. White count not elevated. I sent for copies of his medical record from the emergency department at [facility]. We still have not received copies of these. Patient was treated with 2 L IV normal saline. Also received Toradol IV and Zofran IV. He is now tolerating p.o. fluids without difficulty. His tachycardia has resolved and he is much more comfortable. I explained to the patient that he likely has an acute viral syndrome. We going to do a COVID nasal swab although he does not really have classic COVID findings or symptoms. I feel he stable for outpatient antibiotic management at this time and recommend self-isolation at home for the next 72 hours to his covert swab was resulted. He was given clinic referral for outpatient follow-up pending COVID test. Findings, clinical impression and plan of treatment have been discussed with patient/family. Understanding of current findings and recommendations has been acknowledged by them and there is agreement regarding disposition and follow-up. Findings, clinical impression and plan of treatment have been discussed with patient/family. Understanding of current findings and recommendations has been acknowledged by them and there is agreement regarding disposition and follow-up. - Vital Signs Vital signs: Temp Pulse Resp BP Pulse Ox 98.5 F 143 H 20 164/100 H 100 03/31/20 12:47 03/31/20 12:47 03/31/20 12:47 03/31/20 12:47 03/31/20 12:47 - Laboratory Result Diagrams: 03/31/20 13:23 03/31/20 13:23 Laboratory results interpreted by me: 03/31/20 03/31/20 03/31/20 13:23 13:23 14:15 Hgb 17.4 H Glucose 125 H Total Bilirubin 1.6 H Urine Ketones 20 H Discharge - Discharge Clinical Impression: Dehydration, Acute viral syndrome Condition: Stable Disposition: HOME, SELF-CARE Additional Instructions: Increase oral fluids. Take prescribed medications as needed. Return here as needed for new or worsening symptoms. Recommend self-isolation at home for the next 3 days to result of your COVID test is reported to you. You will be provided a work note for the next 3 days. You were also provided the name of a referral physician/clinic for follow-up visit if your symptoms are not resolved within the next 3 to 5 days. Prescriptions: Naproxen 500 mg PO BID PRN 7 Days #14 tablet PRN Reason: Ondansetron [Zofran Odt 4 mg Tablet] 1 - 2 tab PO Q4H PRN #15 tab.rapdis PRN Reason: For Nausea/Vomiting Forms: Return to Work
[2020-03-31 16:49] VITALS: BP 150/78
--- NOTE | 2020-03-31 20:19 | EKG REPORT ---
SEVERITY:- BORDERLINE ECG - SINUS TACHYCARDIA PROBABLE LEFT ATRIAL ABNORMALITY : Confirmed by: Yasmin Oreilly MD 31-Mar-2020 20:18:46
== END 2020-03-31 16:48 | disposition home or self-care (01) ==
LOC: ER 12:38
DX: B34.9 Viral infection, unspecified (principal); E86.0 Dehydration; R25.2 Cramp and spasm; M54.9 Dorsalgia, unspecified; F17.200 Nicotine dependence, unspecified, uncomplicated; Z79.899 Other long term (current) drug therapy; Z20.828 Contact with and (suspected) exposure to other viral communicable diseases
CPT/HCPCS: 93005; 99285; 96361; 96374; 96375; 36415; 83690; 85025; 87635; 80053; 81001; 84484; 80307; 71045; 93010; J1885; J2405; J7030; C9803

== ENCOUNTER 2020-04-03 09:30 | Emergency (ER) | payer SELFPAY ==
[2020-04-03] MEDS ORDERED: NORMAL SALINE 1000 ML 1,000 ML IV ONE (10:43)
[2020-04-03] MEDS ORDERED: KETOROLAC TROMETHAMINE INJ/PF 30 MG/1 ML SDV IV ONE (10:43)
[2020-04-03] MEDS ORDERED: METHOCARBAMOL INJ/PF 1000 MG/10 ML SDV IV ONE (10:44)
[2020-04-03] MEDS ORDERED: LORAZEPAM INJ 2 MG/1 ML VIAL IV ONE (10:44)
--- NOTE | 2020-04-03 11:27 | ER Document Report ---
Entered by IRIS MCFARLAND SCRIBE 04/03/20 1038 Acting as scribe for:IONA CEBALLOS MD ED Neck/Back Problem - General Chief Complaint: Back Pain Stated Complaint: BACK PAIN Time Seen by Provider: 04/03/20 10:07 Mode of Arrival: Ambulatory Information source: Patient Notes: This 40 year old male patient presents to the emergency department today with complaints of neck and back pain. He was seen at [facility] in [place] last wednesday and he had negative labs/head CT. He was discharged with prescription for cyclobenzaprine 5 mg. He was seen here 3 days ago for this same pain and he was diagnosed with a viral syndrome but he was negative for COVID. He was prescribed Zofran for the nauseousness and naproxen sodium for pain. He reports that the muscle relaxer has not helped his pain. Patient reports this morning he did have some nauseousness but took the Zofran and it resolved his nausea fairly quickly. 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 He has not had any animal bites. Patient had been getting a monthly prescription for 10mg valium #90, last filled on 01/17/2020. He reports he was not able to see the physician and continue receiving the medication because he lost his insurance. He states he was on Valium 10 mg 3 times daily on a chronic basis for his restless legs and anxiety. TRAVEL OUTSIDE OF THE [place] IN LAST 30 DAYS: No - Related Data Allergies/Adverse Reactions: Penicillins Allergy (Verified 03/31/20 13:03) Past Medical History - General Information source: Patient - Social History Smoking Status: Former Smoker - quit 10 years ago Cigarette use (# per day): No Frequency of alcohol use: Occasional Drug Abuse: None Lives with: Family Family History: Reviewed & Not Pertinent GI Medical History: Reports: Hx Gastroesophageal Reflux Disease Psychiatric Medical History: Reports: Hx Anxiety, Hx Bipolar Disorder, Hx Depression Past Surgical History: Reports: Hx Orthopedic Surgery - Immunizations Hx Diphtheria, Pertussis, Tetanus Vaccination: Yes Review of Systems - Review of Systems Constitutional: No symptoms reported EENT: No symptoms reported Cardiovascular: No symptoms reported Respiratory: No symptoms reported Gastrointestinal: No symptoms reported Genitourinary: No symptoms reported Male Genitourinary: No symptoms reported Musculoskeletal: See HPI, Back pain, Neck pain Skin: No symptoms reported Hematologic/Lymphatic: No symptoms reported Neurological/Psychological: No symptoms reported -: Yes All other systems reviewed and negative Physical Exam - Vital signs Vitals: Temp Pulse Resp BP Pulse Ox 97.9 F 98 16 141/93 H 100 04/03/20 09:35 04/03/20 09:35 04/03/20 09:35 04/03/20 09:35 04/03/20 09:35 - Notes Notes: Physical Exam: General: Alert, appears well. HEENT: Normocephalic. Atraumatic. PERRL. Extraocular movements intact. Oropharynx clear. Neck: Neck is supple, able to put chin to chest, there is paraspinal tenderness to palpation of the cervical and scapular muscles. Respiratory: No respiratory distress. Clear and equal breath sounds bilaterally. Cardiovascular: Regular rate and rhythm. Abdominal: Normal Inspection. Non-tender. No distension. Normal Bowel Sounds. Back: No gross abnormalities. Extremities: Moves all four extremities. Upper extremities: Normal inspection. Normal ROM. Lower extremities: Normal inspection. No edema. Normal ROM. Neurological: Normal cognition. AAOx4. Normal speech. Psychological: Normal affect. Normal Mood. Skin: Warm. Dry. Normal color. Course - Re-evaluation Re-evalutation: 04/03/20 13:01 I went to check on the patient, and he is sleeping. I struck his leg a bit to get him to wake up, he states that he still has the soreness, he does not have any nauseousness. Explained to him that his CBC and CHEM 12 were normal, his ESR was only 12, and his CRP was undetectable. We will try him on Robaxin, continue the naproxen sodium 500 mg twice daily, will prescribe a short course of Tyler 5 mg, and recommend that he follow-up wit h a primary care provider if he is not improving. - Vital Signs Vital signs: Temp Pulse Resp BP Pulse Ox 97.9 F 98 16 141/93 H 100 04/03/20 09:35 04/03/20 09:35 04/03/20 09:35 04/03/20 09:35 04/03/20 09:35 - Laboratory Result Diagrams: 04/03/20 11:11 04/03/20 11:11 Laboratory results interpreted by me: 04/03/20 04/03/20 11:11 11:11 Seg Neutrophils % 79.0 H Creatine Kinase 36 L Discharge - Discharge Clinical Impression: Cervical muscle pain, Viral syndrome Condition: Stable Disposition: HOME, SELF-CARE Additional Instructions: Viral Syndrome: The physician has diagnosed a viral infection. Viruses not only cause "colds," but can cause many different symptoms including generalized aching, fever, headache, cough, diarrhea, nausea, vomiting, and fatigue. The treatment, for the most part, is simply relief of symptoms. This means that antibiotics are usually not given. Rest, fluids, pain medications and, occasionally, medication for the specific symptoms that are most bothersome will be prescribed. Use good handwashing to avoid passing the virus to others. Contact the physician if you develop any new or unusual symptoms such as severe headache, stiff neck, high fever, chest pain, productive cough, or shortness of breath. You should be rechecked if you don't see marked improvement within seven to 10 days. Take the methocarbamol muscle relaxer as prescribed. Continue the naproxen every 12 hours. Take the Tyler as prescribed for the next couple of days if needed. Continue Zofran for nauseousness if needed. Drink plenty of fluids and get plenty of rest. Follow-up with a local medical doctor if you do not improve over the next 1 to 2 weeks. RETURN TO THE EMERGENCY ROOM IF ANY NEW OR WORSENING SYMPTOMS. Prescriptions: Naproxen [Naprosyn] 500 mg PO BID #20 tablet Hydrocodone/Acetaminophen [Tyler 5-325 mg Tablet] 1 tab PO ASDIR PRN #10 tablet PRN Reason: For Pain Methocarbamol [Robaxin 750 mg Tablet] 750 mg PO ASDIR PRN #40 tablet PRN Reason: Ondansetron [Zofran Odt 4 mg Tablet] 1 - 2 tab PO Q4H PRN #14 tab.rapdis PRN Reason: I personally performed the services described in the documentation, reviewed and edited the documentation which was dictated to the scribe in my presence, and it accurately records my words and actions.
[2020-04-03 11:35] LABS: ABSOLUTE EOSINOPHILS # (AUTO) 0.1 10^3/uL (0.0-0.6); ABSOLUTE LYMPHOCYTES (AUTO) 1.3 10^3/uL (0.5-4.7); ABSOLUTE MONOCYTES (AUTO) 0.5 10^3/uL (0.1-1.4); ABSOLUTE NEUT (AUTO) 7.3 10^3/uL (1.7-8.2); BASOPHILS % (AUTO) 0.4 % (0-2); EOSINOPHILS % (AUTO) 1.3 % (0-6); HEMATOCRIT 46.9 % (37.9-51.0); HEMOGLOBIN 16.7 g/dL (13.5-17.0); LYMPHOCYTES % (AUTO) 13.7 % (13-45); MEAN CORPUSCULAR HEMOGLOBIN 32.5 pg (27.0-33.4); MEAN CORPUSCULAR HGB CONC 35.5 g/dL (32.0-36.0); MEAN CORPUSCULAR VOLUME 91 fl (80-97); MONOCYTES % (AUTO) 5.6 % (3-13); PLATELET COUNT 191 10^3/uL (150-450); RED BLOOD COUNT 5.13 10^6/uL (4.35-5.55); TOTAL CELLS COUNTED % (AUTO) 100 %; WHITE BLOOD COUNT 9.3 10^3/uL (4.0-10.5)
[2020-04-03 12:05] LABS: ALBUMIN 4.3 g/dL (3.5-5.0); ALKALINE PHOSPHATASE 69 U/L (38-126); ANION GAP 7 (5-19); ASPARTATE AMINO TRANSFERASE 21 U/L (17-59); BILIRUBIN,DIRECT 0.3 mg/dL (0.0-0.4); BLOOD UREA NITROGEN 15 mg/dL (7-20); CALCIUM 9.5 mg/dL (8.4-10.2); CARBON DIOXIDE 26 mmol/L (22-30); CHLORIDE 104 mmol/L (98-107); CREATINE KINASE 36 U/L (55-170); GLUCOSE 98 mg/dL (75-110); POTASSIUM 4.5 mmol/L (3.6-5.0)
[2020-04-03 12:12] LABS: ERYTHROCYTE SEDIMENTATION RATE 12 mm/hr (0-15)
[2020-04-03 12:13] LABS: C-REACTIVE PROTEIN < 5.0 mg/L (<10.0)
[2020-04-03 13:13] VITALS: BP 127/87
[2020-04-03 13:15] LABS: APPEARANCE,URINE CLEAR; BILIRUBIN,URINE NEGATIVE (NEGATIVE); COLOR,URINE YELLOW; GLUCOSE, URINE NEGATIVE (NEGATIVE); KETONES,URINE TRACE mg/dL (NEGATIVE); LEUKOCYTE ESTERASE,URINE NEGATIVE (NEGATIVE); NITRITE,URINE NEGATIVE (NEGATIVE); PROTEIN,URINE NEGATIVE (NEGATIVE); UROBILINOGEN,URINE NEGATIVE mg/dL (<2.0)
== END 2020-04-03 14:04 | disposition home or self-care (01) ==
LOC: ER 09:30
DX: M79.18 Myalgia, other site (principal); B34.9 Viral infection, unspecified; M54.9 Dorsalgia, unspecified; R11.0 Nausea; Z88.0 Allergy status to penicillin; Z87.891 Personal history of nicotine dependence
CPT/HCPCS: 99284; 96361; 96375; 96365; 36415; 82550; 85025; 85652; 86140; 80053; 81001; J2800; J1885; J2060; J7030

== ENCOUNTER 2020-04-10 04:20 | Emergency (ER) | payer SELFPAY ==
[2020-04-10] MEDS ORDERED: HYDROCODONE/ACETAMINOPHEN 5-325 MG TABLET PO ONE (09:38)
--- NOTE | 2020-04-10 10:36 | RADIOLOGY REPORT (SQ) ---
EXAM DESCRIPTION: CT CERVICAL SPINE WITHOUT IMAGES COMPLETED DATE/TIME: 04/10/2020 9:59 am REASON FOR STUDY: neck pain COMPARISON: None. TECHNIQUE: Axial images acquired through the cervical spine without intravenous contrast. Images re viewed with lung, soft tissue and bone windows. Reconstructed coronal and sagittal MPR images review ed. Images stored on PACS. All CT scanners at this facility use dose modulation, iterative reconstruction, and/or weight based d osing when appropriate to reduce radiation dose to as low as reasonably achievable (ALARA). [facility]: Dose Right [facility]: CareDose [facility]: Dose Right [facility]: Teradose 4D [facility]: simplifyMD RADIATION DOSE: CT Rad equipment meets quality standard of care and radiation dose reduction techniq ues were employed. CTDIvol: 19.4 mGy. DLP: 409 mGy-cm. mGy. LIMITATIONS: None. FINDINGS: ALIGNMENT: Anatomic. MINERALIZATION: Normal. VERTEBRAL BODIES: No fractures or dislocation. DISCS: Trace disc disease is seen predominantly at the C5 through C7 levels. FACETS, LATERAL MASSES, POSTERIOR ELEMENTS: No fractures. No dislocation. No acute findings. HARDWARE: None in the spine. VISUALIZED RIBS: No fractures. LUNG APICES AND SOFT TISSUES: No significant or acute findings. OTHER: No other significant finding. IMPRESSION: No evidence of acute osseous injury. Trace spondylotic changes involving the lower cerv ical levels. TECHNICAL DOCUMENTATION: JOB ID: [id number] Quality ID # [id number]: Final reports with documentation of one or more dose reduction techniques (e.g., Au tomated exposure control, adjustment of the mA and/or kV according to patient size, use of iterative reconstruction technique) 2010 [employer]- All Rights Reserved Reading location - IP/workstation name: ED
--- NOTE | 2020-04-10 10:37 | RADIOLOGY REPORT (SQ) ---
EXAM DESCRIPTION: T SPINE AP/LAT IMAGES COMPLETED DATE/TIME: 04/10/2020 10:03 am REASON FOR STUDY: thoracic pain COMPARISON: None. NUMBER OF VIEWS: Two views. TECHNIQUE: AP and lateral radiographic images acquired of the thoracic spine. LIMITATIONS: None. FINDINGS: MINERALIZATION: Normal. ALIGNMENT: Normal. No scoliosis. VERTEBRAE: No fracture or bone lesion. Maintained height, normal segmentation. DISCS: No significant loss of height or significant narrowing. No large osteophytes. HARDWARE: None in the spine. MEDIASTINUM AND SOFT TISSUES: Normal heart size and aortic contour. No soft tissue abnormality. VISUALIZED LUNG MARIN: Clear. OTHER: No other significant finding. IMPRESSION: No evidence of acute osseous injury or significant degenerative change. TECHNICAL DOCUMENTATION: JOB ID: [id number] 2010 [employer]- All Rights Reserved Reading location - IP/workstation name: [email or web address]
--- NOTE | 2020-04-10 11:15 | ER Document Report ---
ED General - General Chief Complaint: Stiff Neck Stated Complaint: NECK PAIN Time Seen by Provider: 04/10/20 09:03 Mode of Arrival: Ambulatory Information source: Patient TRAVEL OUTSIDE OF THE [place] IN LAST 30 DAYS: No - HPI Notes: Patient presents with posterior neck pain as well as posterior central thoracic pain. He states his pain is worse with movement and better with rest. It has been relatively constant and a dull ache. He states it mainly starts in the neck and radiates into the upper thoracic area. He states that approximately 2 to 3 weeks ago he developed some flulike symptoms and then developed this pain. He states he has seen multiple physicians received pain meds and muscle relaxers but his symptoms continue. He no longer has any type of fever or chills. He is developed no rash. No known tick bites. He has had no vomiting or diarrhea. He did have a head CT at another facility which was negative over a week ago. He had blood work done here approximately week ago that was also unremarkable. - Related Data Allergies/Adverse Reactions: Penicillins Allergy (Verified 03/31/20 13:03) Home Medications: amitriptyline, clonidine, robaxin Past Medical History - General Information source: Patient - Social History Smoking Status: Never Smoker Frequency of alcohol use: None Drug Abuse: None Family History: Reviewed & Not Pertinent - Past Medical History Cardiac Medical History: Denies: Hx Coronary Artery Disease, Hx Heart Attack, Hx Hypertension Pulmonary Medical History: Denies: Hx Asthma, Hx Bronchitis, Hx COPD, Hx Pneumonia Neurological Medical History: Denies: Hx Cerebrovascular Accident, Hx Seizures Renal/ Medical History: Denies: Hx Peritoneal Dialysis GI Medical History: Reports: Hx Gastroesophageal Reflux Disease Musculoskeletal Medical History: Denies Hx Arthritis Psychiatric Medical History: Reports: Hx Anxiety, Hx Bipolar Disorder, Hx Depression Past Surgical History: Reports: Hx Orthopedic Surgery - Immunizations Hx Diphtheria, Pertussis, Tetanus Vaccination: Yes Review of Systems - Review of Systems Constitutional: Malaise, Weakness Cardiovascular: denies: Chest pain, Palpitations Respiratory: denies: Cough, Short of breath -: Yes All other systems reviewed and negative Physical Exam - Vital signs Vitals: Temp Pulse Resp BP Pulse Ox 97.4 F 78 18 122/85 99 04/10/20 05:34 04/10/20 05:34 04/10/20 05:34 04/10/20 05:34 04/10/20 05:34 Interpretation: Normal - General General appearance: Appears well, Alert - HEENT Head: Normocephalic, Atraumatic Eyes: Normal Pupils: PERRL Neck: Other - Patient has some mild posterior diffuse neck pain to palpation. Inspection is unremarkable. Range of motion of the neck is somewhat painful. - Respiratory Respiratory status: No respiratory distress Chest status: Nontender Breath sounds: Normal Chest palpation: Normal - Cardiovascular Rhythm: Regular Heart sounds: Normal auscultation Murmur: No - Abdominal Inspection: Normal Distension: No distension Bowel sounds: Normal Tenderness: Nontender Organomegaly: No organomegaly - Back Back: Normal, Nontender - Extremities General upper extremity: Normal inspection, Nontender, Normal color, Normal ROM, Normal temperature General lower extremity: Normal inspection, Nontender, Normal color, Normal ROM, Normal temperature, Normal weight bearing. No: Ellen's sign - Neurological Neuro grossly intact: Yes Cognition: Normal Orientation: AAOx4 [place] Coma Scale Eye Opening: Spontaneous [place] Coma Scale Verbal: Oriented [place] Coma Scale Motor: Obeys Commands [place] Coma Scale Total: 15 Speech: Normal Motor strength normal: LUE, RUE, LLE, RLE Sensory: Normal - Psychological Associated symptoms: Normal affect, Normal mood - Skin Skin Temperature: Warm Skin Moisture: Dry Skin Color: Normal Course - Re-evaluation Re-evalutation: 04/10/20 11:16 Patient developed some flulike symptoms and then had persistent neck and thoracic pain. He has had approximately 4 visits to physicians with negative CT scans of the head neck as well as negative x-rays of the T-spine is also had negative blood work. He has no rashes. Patient works outside and I am suspicious he may have a tickborne illness. He obviously does not have any type of bacterial meningitis. I am going to start the patient on doxycycline and have drawn a [place] spotted fever titer. - Vital Signs Vital signs: Temp Pulse Resp BP Pulse Ox 97.4 F 78 18 122/85 99 04/10/20 05:34 04/10/20 05:34 04/10/20 05:34 04/10/20 05:34 04/10/20 05:34 - Diagnostic Test Radiology reviewed: Image reviewed, Reports reviewed Discharge - Discharge Clinical Impression: Cervical pain Condition: Stable Disposition: HOME, SELF-CARE Instructions: Upper Back Strain ([facility]) Additional Instructions: We will call you if your [place] spotted fever test is positive. It will return in about three days. Please take your doxycycline until you hear from us. Please follow up with your primary as soon as possible. Prescriptions: Hydrocodone/Acetaminophen [[place] 5-325 mg Tablet] 1 tab PO Q6 PRN 3 Days #12 tablet PRN Reason: For Pain Doxycycline Hyclate [Vibramycin 100 mg Tablet] 100 mg PO BID 10 Days #20 tablet Forms: Return to Work Referrals: [facility] [Provider Group] - Follow up in 3-5 days
[2020-04-10 11:43] VITALS: BP 114/74
== END 2020-04-10 11:38 | disposition home or self-care (01) ==
LOC: ER 04:20
DX: M54.2 Cervicalgia (principal); M43.6 Torticollis; R53.1 Weakness; Z88.0 Allergy status to penicillin
CPT/HCPCS: 36415; 72070; 72125; 86757; 99285